=== PATIENT | male | born 1945 | race Caucasian/White ===

== ENCOUNTER → 2016-08-15 | Outpatient (REF) | payer MEDICARE, OTHER ==
[~2016-08-15] MED LIST: /LORA10TA PO; /METO25TAB PO; ASPI81TA85 PO; CRES5TAB PO; OMEP20CA3 PO; TAMS0.4C PO; TYLE325T5 PO; [UNRECOGNIZED DRUG - OTHER] PO
[2016-08-15 18:04] LABS: TOTAL PROTEIN 8.5 GM/DL (6.4-8.2)
[2016-08-17 13:49] LABS: ALBUMIN 4.24 GM/DL (3.29-5.55); ALBUMIN % 49.9 % (55.8-66.1)
== END ==
LOC: M LAB REF 17:00
PROVIDERS: ATTEND Family Medicine
DX: N20.2 Calculus of kidney with calculus of ureter (principal)

== ENCOUNTER 2017-01-23 14:44 | Emergency (ER) | payer MEDICARE, OTHER ==
[~2017-01-23] VITALS: Ht 170.2 cm; Wt 97.7 kg
[2017-01-23] MEDS ORDERED: POTA10TAB (15:04)
[2017-01-23] MEDS ORDERED: OMEP20CA3 (15:04)
[2017-01-23] MEDS ORDERED: NS 1,000 ML IV SCH (15:41)
[2017-01-23 16:28] LABS: BASO # 0.2 K/mm3 (0.0-0.2); EOS # 0.1 K/mm3 (0.0-0.50); EOS % 1.1 % (0.0-3.0); LARGE UNSTAINED CELL # 0.3 K/mm3 (0.0-0.4); LARGE UNSTAINED CELL % 3.5 % (0.0-4.0); LYMPH # 1.6 K/mm3 (1.5-4.5); LYMPH % 18.6 % (24.0-44.0); MEAN CORPUSCULAR HEMOGLOBIN 34.3 pg (27.0-33.0); MEAN CORPUSCULAR HGB CONC 34.8 g/dl (32.0-36.5); MEAN CORPUSCULAR VOLUME 98.6 fl (80.0-96.0); MONO # 0.7 K/mm3 (0.0-0.8); MONO % 7.8 % (0.0-5.0); NEUTROPHILS # 5.7 K/mm3 (1.8-7.7); PLATELET COUNT, AUTOMATED 251 k/mm3 (150-450); RED CELL DISTRIBUTION WIDTH 13.3 % (11.5-14.5); WHITE BLOOD COUNT 8.5 K/mm3 (4.0-10.0)
[2017-01-23 16:46] LABS: ALBUMIN 3.5 GM/DL (3.2-5.2); ALBUMIN/GLOBULIN RATIO 0.81 (1.00-1.93); ALKALINE PHOSPHATASE 73 U/L (45-117); ALT/SGPT 29 U/L (12-78); AMYLASE 42 U/L (25-115); ANION GAP 8 MEQ/L (8-16); AST/SGOT 20 U/L (15-37); BILIRUBIN,DIRECT 0.1 MG/DL (0.0-0.2); BILIRUBIN,TOTAL 0.4 MG/DL (0.2-1.0); BLOOD UREA NITROGEN 20 MG/DL (7-18); CALCIUM LEVEL 8.3 MG/DL (8.8-10.2); CARBON DIOXIDE LEVEL 27 MEQ/L (21-32); CHLORIDE LEVEL 105 MEQ/L (98-107); CREATININE FOR GFR 0.97 MG/DL (0.70-1.30); GLOMERULAR FILTRATION RATE > 60.0 (>42); GLUCOSE, FASTING 98 MG/DL (83-110); POTASSIUM SERUM 3.7 MEQ/L (3.5-5.1); SODIUM LEVEL 140 MEQ/L (136-145); TOTAL PROTEIN 7.8 GM/DL (6.4-8.2)
[2017-01-23] MEDS ORDERED: ISOVUE-370 76% 100ML VIAL (Q9967) As Ordered ONE (17:27)
--- NOTE | 2017-01-23 18:20 | REP ---
Slight [place] CT abdomen and pelvis with IV contrast, without bowel contrast: Comparisons are 03/02/2016, 12/02/2014 and 07/21/2012. The visualized lung palacios are unremarkable except for dependent atelectasis. The hepatic parenchyma is unremarkable. There are surgical clips in the gallbladder fossa. The pancreas and spleen are unremarkable. The adrenals are unremarkable. There are two nonobstructive right renal calculi, unchanged. There is no hydronephrosis. There is a left renal parapelvic cyst, unchanged. There is no left hydronephrosis. The abdominal aorta is unremarkable. There is no bowel distension. There are scattered diverticula in the ascending colon, transverse colon. There are numerous diverticula in the descending colon and sigmoid colon. There is mild pericolonic stranding adjacent to the distal descending colon compatible with mild diverticulitis. There is no pericolonic abscess. There is no ascites. Pelvis: There is no adenopathy or ascites. The pelvic bowel loops are unremarkable except for colonic diverticula. The bladder is unremarkable. Impression: Colonic diverticula is described. There is pericolonic stranding adjacent to the diverticula in the descending colon compatible with mild diverticulitis. There is no pericolonic abscess. No free fluid. Large left renal parapelvic cyst, unchanged. There are two nonobstructive right renal calculi, unchanged. Signed by Edgar Dixon MD 01/23/2017 06:11 P
[2017-01-23] MEDS ORDERED: PERC5TAB12 PO ×2 (18:34→18:36)
[2017-01-23] MEDS ORDERED: AUGM875T28 PO (18:34)
[2017-01-23 18:36] VITALS: BP 163/75
--- NOTE | 2017-01-24 09:43 | ED PDOC ---
Post-Departure Follow-Up radiology report faxed to Xiomy Maloney MD Jan 24, 2017 09:43
== END 2017-01-23 19:15 | disposition home or self-care (01) ==
LOC: M ED 14:44
DX: K57.92 Diverticulitis of intestine, part unspecified, without perforation or abscess without bleeding (principal); E78.00 Pure hypercholesterolemia, unspecified; H53.9 Unspecified visual disturbance; N28.9 Disorder of kidney and ureter, unspecified; N20.0 Calculus of kidney; Z87.440 Personal history of urinary (tract) infections; M54.9 Dorsalgia, unspecified; N28.1 Cyst of kidney, acquired; Z79.82 Long term (current) use of aspirin; Z79.899 Other long term (current) drug therapy; Z88.2 Allergy status to sulfonamides; Z88.8 Allergy status to other drugs, medicaments and biological substances
CPT/HCPCS: 74177; 80048; 80076; 81001; 82150; 83605; 83690; 85025; 99283; Q9967

== ENCOUNTER → 2017-04-11 | Outpatient (CLI) | payer MEDICARE, OTHER ==
[~2017-04-11] MED LIST changes: +AUGM875T28 PO; +OMEP20CA3; +PERC5TAB12 PO; +POTA10TAB
--- NOTE | 2017-04-11 11:19 | REP ---
ADULT SKELETAL SURVEY: 17 VIEWS. HISTORY: Multiple myeloma. COMPARISON STUDY: August 25, 2009 TECHNIQUE: AP and lateral views of the skull, cervical spine, thoracic spine, lumbar spine are obtained. An AP view of the pelvis and AP views of each humerus and each femur are obtained. FINDINGS: The bony calvarium is intact and unchanged from the 2010 prior radiograph. No significant lytic lesion is seen. Visualized paranasal sinuses are clear. No mandibular lesion is observed. Cervical, thoracic, and lumbar vertebral body heights are preserved. No collapse is seen. Pedicles and posterior elements are intact. There are degenerative spondylosis changes in all three segments of the spine as before. There are clips in right upper quadrant of the abdomen. There is a calcification overlying the right kidney upper pole which may be an intrarenal calculus 5 mm in diameter. AP view of the pelvis shows an no bony destructive lesion. There is mild osteoarthritic spurring of the hips. AP views of each femur and humerus show no evidence of myelomatous lesion. There are some osteoarthritic changes at the shoulders and knees. IMPRESSION: No evidence of focal myelomatous lesion seen. Signed by Refugio Angulo MD 04/11/2017 03:30 P
== END ==
LOC: M RAD 09:43
PROVIDERS: ATTEND Internal Medicine Medical Oncology
DX: C90.00 Multiple myeloma not having achieved remission (principal); D47.2 Monoclonal gammopathy

== ENCOUNTER → 2017-04-11 | Outpatient (REF) | payer MEDICARE, OTHER ==
[2017-04-11 18:25] LABS: IMMUNOGLOBULIN G 1980 MG/DL (681-1648); IMMUNOGLOBULIN M 71.6 MG/DL (40-230); TOTAL PROTEIN 8.4 GM/DL (6.4-8.2)
[2017-04-12 09:00] LABS: ALBUMIN 4.28 GM/DL (3.29-5.55); GAMMA GLOBULIN % 24.6 % (11.1-18.8)
[2017-04-13 00:07] LABS: FREE KAPPA LIGHT CHAINS SERUM 20.3 mg/L (3.3-19.4); FREE LAMBDA LIGHT CHAINS SERUM 47.1 mg/L (5.7-26.3); KAPPA/LAMBDA RATIO SERUM 0.43 (0.26-1.65)
== END ==
LOC: M LAB REF 12:25
PROVIDERS: ATTEND Internal Medicine Medical Oncology
DX: D47.2 Monoclonal gammopathy (principal)

== ENCOUNTER → 2017-04-14 | Outpatient (REF) | payer MEDICARE, OTHER | LOC: M LAB REF 11:01 | PROVIDERS: ATTEND Internal Medicine Medical Oncology | DX: C90.00 Multiple myeloma not having achieved remission (principal) ==

== ENCOUNTER → 2017-09-22 | Outpatient (CLI) | payer MEDICARE, OTHER ==
[2017-09-22 09:20] LABS: BASO % 0.5 % (0.0-1.0); EOS # 0.2 10^3/uL (0.0-0.50); EOS % 3.5 % (0.0-3.0); HEMATOCRIT 45.5 % (42.0-52.0); HEMOGLOBIN 15.2 g/dl (14.0-18.0); IMMATURE GRANULOCYTE % 0.3 % (0-3.0); LYMPH # 1.6 10^3/uL (1.5-4.5); LYMPH % 25.4 % (24.0-44.0); MEAN CORPUSCULAR HEMOGLOBIN 32.3 pg (27.0-33.0); MEAN CORPUSCULAR HGB CONC 33.4 g/dl (32.0-36.5); MEAN CORPUSCULAR VOLUME 96.6 fl (80.0-96.0); MONO # 0.7 10^3/uL (0.0-0.8); MONO % 11.1 % (0.0-5.0); NEUTROPHILS # 3.7 10^3/uL (1.8-7.7); NEUTROPHILS % 59.2 % (36.0-66.0); PLATELET COUNT, AUTOMATED 242 10^3/uL (150-450); RED BLOOD COUNT 4.71 10^6/uL (4.30-6.10); RED CELL DISTRIBUTION WIDTH 13.9 % (11.5-14.5); WHITE BLOOD COUNT 6.2 10^3/uL (4.0-10.0)
[2017-09-22 09:46] LABS: URINE TOTAL PROTEIN 26.1 MG/DL (0-12)
[2017-09-22 10:02] LABS: ALBUMIN 3.6 GM/DL (3.2-5.2); ALKALINE PHOSPHATASE 77 U/L (45-117); ALT/SGPT 31 U/L (12-78); ANION GAP 6 MEQ/L (8-16); AST/SGOT 20 U/L (7-37); BILIRUBIN,TOTAL 0.5 MG/DL (0.2-1.0); BLOOD UREA NITROGEN 17 MG/DL (7-18); CALCIUM LEVEL 8.5 MG/DL (8.8-10.2); CARBON DIOXIDE LEVEL 29 MEQ/L (21-32); CHLORIDE LEVEL 105 MEQ/L (98-107); GLOMERULAR FILTRATION RATE > 60.0 (>42); GLUCOSE, FASTING 94 MG/DL (70-100); IMMUNOGLOBULIN G 1850 MG/DL (681-1648); IMMUNOGLOBULIN M 80.6 MG/DL (40-230); POTASSIUM SERUM 4.4 MEQ/L (3.5-5.1); SODIUM LEVEL 140 MEQ/L (136-145); TOTAL PROTEIN 8.1 GM/DL (6.4-8.2)
[2017-09-22 13:54] LABS: ALBUMIN 4.05 GM/DL (3.29-5.55); ALPHA-1-GLOBULIN % 3.8 % (2.9-4.9); ALPHA-2-GLOBULINS % 10.7 % (7.1-11.8); BETA-1-GLOBULINS % 5.7 % (4.7-7.2); BETA-2-GLOBULINS % 5.5 % (3.2-6.5); GAMMA GLOBULIN % 24.3 % (11.1-18.8)
[2017-09-22 13:55] LABS: ALPHA-1-GLOBULINS 0.31 GM/DL (0.17-0.41); ALPHA-2-GLOBULINS 0.87 GM/DL (0.42-0.99); BETA-1-GLOBULINS 0.46 GM/DL (0.28-0.60); BETA-2-GLOBULINS 0.45 GM/DL (0.19-0.55); GAMMA GLOBULINS 1.97 GM/DL (0.65-1.58)
[2017-09-24 00:09] LABS: FREE KAPPA LIGHT CHAINS SERUM 18.4 mg/L (3.3-19.4); FREE LAMBDA LIGHT CHAINS SERUM 51.2 mg/L (5.7-26.3); KAPPA/LAMBDA RATIO SERUM 0.36 (0.26-1.65)
== END ==
LOC: M LAB 08:11
DX: D47.2 Monoclonal gammopathy (principal)
CPT/HCPCS: 84165

== ENCOUNTER → 2017-12-26 | Outpatient (REF) | payer MEDICARE, OTHER ==
[2017-12-26 15:03] LABS: URINE TOTAL PROTEIN 24.4 MG/DL (0-12)
[2017-12-26 17:15] LABS: IMMUNOGLOBULIN G 1970 MG/DL (681-1648); IMMUNOGLOBULIN M 75.8 MG/DL (40-230); TOTAL PROTEIN 8.3 GM/DL (6.4-8.2)
[2017-12-28 00:07] LABS: FREE KAPPA LIGHT CHAINS SERUM 17.5 mg/L (3.3-19.4); FREE LAMBDA LIGHT CHAINS SERUM 52.9 mg/L (5.7-26.3); KAPPA/LAMBDA RATIO SERUM 0.33 (0.26-1.65)
[2017-12-28 12:46] LABS: ALBUMIN % 50.6 % (55.8-66.1); ALPHA-1-GLOBULIN % 3.8 % (2.9-4.9); ALPHA-1-GLOBULINS 0.32 GM/DL (0.17-0.41); ALPHA-2-GLOBULINS 0.83 GM/DL (0.42-0.99); BETA-1-GLOBULINS 0.46 GM/DL (0.28-0.60); BETA-1-GLOBULINS % 5.5 % (4.7-7.2); BETA-2-GLOBULINS 0.44 GM/DL (0.19-0.55); BETA-2-GLOBULINS % 5.3 % (3.2-6.5); GAMMA GLOBULIN % 24.8 % (11.1-18.8); GAMMA GLOBULINS 2.06 GM/DL (0.65-1.58)
[2017-12-28 14:26] LABS: UPEP INTERPRETATION 2 M-SPIKES IN GAMMA; URINE VOLUME RANDOM ML
== END ==
LOC: M LAB REF 12:46
DX: D47.2 Monoclonal gammopathy (principal)
CPT/HCPCS: 84165

== ENCOUNTER → 2018-05-07 | Outpatient (REF) | payer MEDICARE, OTHER ==
[2018-05-07 12:59] LABS: IMMUNOGLOBULIN G 1850 MG/DL (681-1648); IMMUNOGLOBULIN M 66 MG/DL (40-230)
[2018-05-08 13:49] LABS: ALBUMIN % 48.4 % (55.8-66.1); ALPHA-1-GLOBULIN % 3.7 % (2.9-4.9); ALPHA-2-GLOBULINS % 11.5 % (7.1-11.8)
[2018-05-08 13:50] LABS: ALBUMIN 3.87 GM/DL (3.29-5.55); ALPHA-2-GLOBULINS 0.92 GM/DL (0.42-0.99); BETA-1-GLOBULINS 0.44 GM/DL (0.28-0.60); BETA-1-GLOBULINS % 5.5 % (4.7-7.2); BETA-2-GLOBULINS 0.43 GM/DL (0.19-0.55); BETA-2-GLOBULINS % 5.4 % (3.2-6.5); GAMMA GLOBULIN % 25.5 % (11.1-18.8); GAMMA GLOBULINS 2.04 GM/DL (0.65-1.58)
[2018-05-08 13:57] LABS: IMMUNOTYPING SERUM IGG ABNORMAL (NORMAL)
[2018-05-08 13:58] LABS: IMMUNOTYPING SERUM LAMBDA ABNORMAL (NORMAL)
[2018-05-09 00:06] LABS: FREE KAPPA LIGHT CHAINS SERUM 18.5 mg/L (3.3-19.4); FREE LAMBDA LIGHT CHAINS SERUM 53.6 mg/L (5.7-26.3); KAPPA/LAMBDA RATIO SERUM 0.35 (0.26-1.65)
== END ==
LOC: M LAB REF 12:10
DX: D47.2 Monoclonal gammopathy (principal); R80.3 Bence Jones proteinuria
CPT/HCPCS: 84165

== ENCOUNTER → 2018-07-23 | Outpatient (REF) | payer MEDICARE, OTHER ==
[~2018-07-23] MED LIST changes: +ASPI1TAB PO; +ATOR1TAB19 PO; +CLOP75TA2 PO; +HYDR12CA PO; +LORA10CA PO; +METO1TAB87 PO; +PANT40TA3 PO; +POTA10808; -POTA10TAB; +TAMS1CAP17 PO
[2018-07-23 15:47] LABS: AMYLASE 48 U/L (25-115); LIPASE 152 U/L (73-393)
== END ==
LOC: M LAB REF 15:28
PROVIDERS: ATTEND Family Medicine
DX: R10.9 Unspecified abdominal pain (principal)

== ENCOUNTER → 2019-03-12 | Outpatient (CLI) | payer MEDICARE, OTHER ==
[~2019-03-12] MED LIST changes: -/LORA10TA PO; -/METO25TAB PO; -ASPI1TAB PO; +ASPI81TA26 PO; +LORA-385 PO; -OMEP20CA3; +OMEP20CA4; +SM LTAB5 PO
--- NOTE | 2019-03-12 16:42 | REP ---
Clinical: Right lower extremity pain and swelling. Technique: Butts scale and color Doppler evaluation of the right lower extremity using linear high frequency transducer. Findings: Ultrasound examination of the right lower extremity deep venous structures from the common femoral vein to the popliteal vein demonstrates nonocclusive thrombus in the popliteal vein consistent with deep venous thrombosis Impression: Deep venous thrombosis involving the popliteal vein. Electronically Signed by Juan Pham MD 03/12/2019 04:34 P
== END ==
LOC: M RAD 16:00
PROVIDERS: ATTEND Nurse Practitioner Family
DX: I82.431 Acute embolism and thrombosis of right popliteal vein (principal)

== ENCOUNTER 2019-05-03 11:39 | Inpatient (IN) | payer MEDICARE, OTHER ==
[~2019-05-03] VITALS: Ht 170.2 cm; Wt 104.7 kg
[~2019-05-03 11:39] MED LIST changes: -POTA10808; +POTA10808 PO
[2019-05-03] MEDS ORDERED: ALBU8.5H INH (12:14)
[2019-05-03] MEDS ORDERED: CETI10CA13 PO (12:14)
[2019-05-03] MEDS ORDERED: OSTETAB2 PO (12:14)
[2019-05-03] MEDS ORDERED: COLA100C5 PO (12:14)
[2019-05-03] MEDS ORDERED: REFRSOL OP (12:14)
[2019-05-03] MEDS ORDERED: ELIQ5TAB PO (12:14)
[2019-05-03] MEDS ORDERED: colon health PO (12:14)
[2019-05-03] MEDS ORDERED: ERYT1OIN26 (12:14)
[2019-05-03] MEDS ORDERED: MIRA3350 PO (12:14)
[2019-05-03] MEDS ORDERED: REST0.05 OU (12:14)
[2019-05-03] MEDS ORDERED: AMLO5TAB6 PO (12:14)
--- NOTE | 2019-05-03 12:40 | REP ---
CT brain: 05/03/2019. Indication: Stroke. Comparison: New none. Technique: Unenhanced axial CT images of the brain were obtained from skull base to vertex. Findings: There is no acute intracranial hemorrhage, acute cortical infarction, mass effect or hydrocephalous. Mild diffuse volume loss is present. There are a few scattered foci of hypoattenuation throughout the cerebral hemisphere white matter most consistent with chronic small vessel disease. Impression: No acute intracranial process. Electronically Signed by Pete Britton DO 05/03/2019 12:31 P
[2019-05-03 13:09] LABS: BASO % 0.3 % (0.0-1.0); EOS # 0.1 10^3/uL (0.0-0.5); EOS % 1.7 % (0.0-3.0); HEMATOCRIT 41.6 % (42.0-52.0); HEMOGLOBIN 14.1 g/dl (13.5-17.5); LYMPH # 1.4 10^3/uL (1.5-5.0); LYMPH % 20.4 % (24.0-44.0); MEAN CORPUSCULAR HEMOGLOBIN 33.3 pg (27.0-33.0); MEAN CORPUSCULAR HGB CONC 33.9 g/dl (32.0-36.5); MEAN CORPUSCULAR VOLUME 98.1 fl (80.0-96.0); MONO # 0.8 10^3/uL (0.0-0.8); MONO % 12.7 % (0.0-5.0); NEUTROPHILS # 4.3 10^3/uL (1.5-8.5); NEUTROPHILS % 64.4 % (36.0-66.0); PLATELET COUNT, AUTOMATED 251 10^3/uL (150-450); RED BLOOD COUNT 4.24 10^6/uL (4.30-6.10); WHITE BLOOD COUNT 6.6 10^3/uL (4.0-10.0)
[2019-05-03 13:25] LABS: INR 1.23; PROTHROMBIN TIME 15.2 SECONDS (11.8-14.0)
[2019-05-03] MEDS ORDERED: LABETALOL HCL 100 MG/20 ML VIAL IV STA (13:25)
[2019-05-03 13:26] LABS: PARTIAL THROMBOPLASTIN TIME 34.3 SECONDS (25.0-38.4)
[2019-05-03] MEDS ORDERED: hydrALAZINE INJ 20 MG/ML VIAL IV STA (13:28)
--- NOTE | 2019-05-03 13:32 | REP ---
CHEST, SINGLE VIEW: Single view of the chest is performed. There is fibroatelectatic change again seen along the left base unchanged since prior study 12/08/2017. No new infiltrate is seen. Heart does not appear to be significantly enlarged. There is mild calcification of the thoracic aorta. Mediastinal silhouette is unchanged. There are degenerative changes of the spine. IMPRESSION: No acute infiltrate. Unreviewed
[2019-05-03 13:48] LABS: BLOOD UREA NITROGEN 19 MG/DL (7-18); CALCIUM LEVEL 8.6 MG/DL (8.8-10.2); CARBON DIOXIDE LEVEL 28 MEQ/L (21-32); CHLORIDE LEVEL 105 MEQ/L (98-107); CK-MB VALUE MASS 3.7 NG/ML (<3.6); CPK CREATINE PHOSPHOKINASE 503 U/L (39-308); CREATININE FOR GFR 1.07 MG/DL (0.70-1.30); GLOMERULAR FILTRATION RATE > 60.0 (>42); GLUCOSE, FASTING 84 MG/DL (70-100); MB/CK RELATIVE INDEX 0.74 (< OR =4); POTASSIUM SERUM 4.8 MEQ/L (3.5-5.1); SODIUM LEVEL 138 MEQ/L (136-145); TROPONIN I < 0.02 NG/ML (< 0.10)
[2019-05-03] MEDS ORDERED: PHILCAP4 PO (14:50)
[2019-05-03] MEDS ORDERED: FLUT0.003 TOP (14:50)
[2019-05-03] MEDS ORDERED: SELE25SHA TOP (14:50)
[2019-05-03] MEDS ORDERED: GLUCAGON FOR INJ 1 MG VIAL (J1610) SC PRN (15:00)
[2019-05-03] MEDS ORDERED: DEXTROSE 50% 50 ML SYRINGE IV PRN (15:00)
[2019-05-03] MEDS ORDERED: GLUCOSE 4 GM CHEW TABLET PO PRN (15:00)
--- NOTE | 2019-05-03 15:11 | HPEPDOC ---
General Date of Admission 05/03/2019 Date of Service: May 03, 2019 Chief Complaint The patient is a 74-year-old male Who presented to the emergency room with complaints of numbness on left side of the body with left-sided facial droop since Monday History of Present Illness Patient is a 74-year-old male with a PMHx of WA (01/2018, on ASA / Plavix), Hx of R LE DVT (03/2019, on Eliquis), Paroxysmal atrial fibrillation, HTN, DLP, Elevated Glucose (Pre-diabetic), MGUS?, GERD who presented to the emergency room with complaints of left-sided upper and lower extremity numbness and tingling associated with left-sided facial droop. Patient reports that his symptoms began on Monday afternoon after a hvac technician residential had noted facial changes while he was eating lunch. Patient reports that currently he is experiencing some left ear pain, described as throbbing, less than 5/10 without any alleviating or record and factors. Patient denies any difficulty swallowing. Denies any slurred speech. Denies any hearing difficulty, or ringing in ears. Patient denies any difficulty with ambulation. Currently patient denies any chest pain, palpitations but does report shortness of breath with exertion. Patient denies any nausea, vomiting, abdominal pain, diarrhea, constipation, or urinary discomfort. Patient has not expense any fevers or chills over the last 2 weeks. Patient does report an increase in his weight that he attributes to poor exercise, but notes that his appetite has not changed. Home Medications Scheduled Amlodipine Besylate (Amlodipine Besylate) 5 Mg Tablet, 5 MG PO DAILY, (Reported) Apixaban (Eliquis) 5 Mg Tablet, 5 MG PO BID, (Reported) Aspirin (Aspirin EC) 81 Mg Tab, 81 MG PO DAILY, (Reported) Atorvastatin Calcium (Atorvastatin Calcium) 10 Mg Tab, 10 MG PO DAILY, (Reported) Clopidogrel Bisulfate (Clopidogrel) 75 Mg Tab, 75 MG PO DAILY, (Reported) Cyclosporine (Restasis) 0.05% Droperette, 1 DROP OU BID, (Reported) Docusate Sodium (Colace) 100 Mg Capsule, 100 MG PO DAILY, (Reported) Glucosam/Sylvester-Msm1/C/Stevie/Bosw (Osteo Bi-Flex Caplet) 1 Each Tablet, 2 TAB PO DAILY, (Reported) Hydrochlorothiazide (Hydrochlorothiazide) 12.5 Mg Cap, 12.5 MG PO DAILY, (Reported) Loratadine (Loratadine) 10 Mg Tab.rapdis, 10 MG PO DAILY, (Reported) Metoprolol Tartrate (Metoprolol Tartrate) 25 Mg Tab, 25 MG PO BID, (Reported) Pantoprazole Sodium (Pantoprazole Sodium) 40 Mg Tab, 40 MG PO DAILY, (Reported) Potassium Citrate (Potassium Citrate 10MEQ (Urocit-K)) 1,080 Mg Tab, 1,080 MG PO DAILY, (Reported) Tamsulosin Hcl (Tamsulosin HCl) 0.4 Mg Cap, 0.4 MG PO DAILY, (Reported) l Gasseri/B Bifidum/B Longum (Moonshado Capsule) 1 Each Capsule, 1 CAP PO DAILY, (Reported) Scheduled PRN Albuterol Sulfate (Albuterol Sulfate Hfa) 8.5 Gm Hfa.aer.ad, 2 PUFFS INH Q4H PRN for SHORTNESS OF BREATH, (Reported) Fluticasone Propionate (Fluticasone Propionate 0.005%) 15 Gm Oint...g., 1 DOSE TOP BID PRN for ITCHING, (Reported) APPLY TO LOWER LEGS AND UPPER BACK Selenium Sulfide (Selenium Sulfide 2.5%) 118 Ml Lotion, 1 DOSE TOP DAILY PRN for DRY SKIN, (Reported) APPLY TO FACE AND SCALP Allergies Coded Allergies: Ltdxxzx-Nnv-Dew Reductase Inhibitor (Verified Allergy, Unknown, 10/26/18) Sulfa (Sulfonamide Antibiotics) (Verified Allergy, Unknown, 10/26/18) levofloxacin (Verified Allergy, Unknown, 05/03/19) clopidogrel (Verified Adverse Reaction, Intermediate, Fainting /Dizziness, 10/26/18) diazepam (Verified Adverse Reaction, Unknown, Hyper, 10/26/18) Past Medical History Medical History WA (01/2018, on ASA / Plavix), Hx of R LE DVT (03/2019, on Eliquis), Paroxysmal atrial fibrillation, HTN, DLP, Elevated Glucose (Pre-diabetic), MGUS?, Hx of Kidney stones, GERD Surgical History Hiatal hernia repair 2 Cholecystectomy Sinus surgery Vocal cord polyp resection Family History - Mother and father both with a history of extensive strokes Social History - Denies the use of tobacco or illicit drugs; patient reports social alcohol use - Denies recent travel or sick contacts - Lives alone - Occupation; 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 No rhonchi or wheezing is appreciated - Abdomen: Soft, Non-distended, Non-tender - Extremities: No lower extremity edema, No calf tenderness - Neuro: 5/5 strength at upper / lower extremities bilaterally, decreased sensation at left upper / lower extremities, facial droop noted on left side - Skin: No visible rashes Laboratory Data Labs 24H Laboratory Tests 2 05/03/19 12:46: Immature Granulocyte % (Auto) 0.5, Neutrophils (%) (Auto) 64.4, Lymphocytes (%) (Auto) 20.4L, Monocytes (%) (Auto) 12.7H, Eosinophils (%) (Auto) 1.7, Basophils (%) (Auto) 0.3, Neutrophils # (Auto) 4.3, Lymphocytes # (Auto) 1.4L, Monocytes # (Auto) 0.8, Eosinophils # (Auto) 0.1, Basophils # (Auto) 0.0, Nucleated Red Blood Cells % (auto) 0.0, Prothrombin Time 15.2H, Prothromb Time International Ratio 1.23, Activated Partial Thromboplast Time 34.3, Anion Gap 5L, Glomerular Filtration Rate > 60.0, Calcium Level 8.6L, Total Creatine Kinase 503H, Creatine Kinase MB 3.7H, Creatine Kinase MB Relative Index 0.74, Troponin I < 0.02 CBC/BMP Laboratory Tests 05/03/19 12:46 Plan Plan Numbness and tingling of left upper and lower extremities./Left-sided facial numbness and tingling/left-sided facial droop - likely 2/2 acute CVA, less likely 2/2 TIA - Patient presented to the emergency room after experiencing symptoms since Monday - Patient is outside the window to receive tPA - Patient denies any slurring of his speech or dysphagia - Physical does reveal numbness/decreased sensation of a left upper and lower extremities - Left facial droop is noted - CT head 05/03: No acute intracranial process. - CXR 05/03: No acute infiltrate. - Will check echocardiogram. Duplex ultrasound of carotids and fasting lipid profile - Will check MRI / MRA brain - Patient is currently on ASA 81, Plavix 75, Atorvastatin 10 and Elqiuis (re: recent DVT) HTN - Will allow for permissive hypertension in the setting of possible CVA; SBP of 140-160 - Will hold HCTZ and Amlodipine - Will continue with metoprolol and hydralazine PRN Chronic WA - Patient reports that he had an episode of WA in 01/2018 - c/w ASA, Plavix, Atorvastatin, Metoprolol Hx of R LE DVT - Recent history of DVT on 03/2019 - c/w full anticoagulation with Eliquis Paroxysmal atrial fibrillation - Reviewing EKG does reveal that the patient is currently in sinus rhythm - Will continue with rate control medications with metoprolol - Continue with full anticoagulation with eloquent DLP - c/w Atorvastatin Elevated Glucose - likely 2/2 Pre-diabetes - Will check A1c - c/w ISS for now MGUS Hx of Kidney stones - Currently is asymptomatic BPH - c/w Tamsulosin GERD - c/w Protonix DVT prophylaxis - c/w full anticoagulation with BIBI Concepcion MD May 03, 2019 15:11
[2019-05-03 16:28] VITALS: BP 178/84
[2019-05-03] MEDS ORDERED: SLF 3 ML SYR IV PRN (17:00)
[2019-05-03] MEDS: HumaLOG INSULIN (NovoLOG) PER UNIT SC SCH (17:30)
[2019-05-03] MEDS: ACETAMINOPHEN TAB 650MG DOSE (2X325MG) PO PRN (18:13)
[2019-05-03 20:00] VITALS: BP 132/69
--- NOTE | 2019-05-03 20:06 | REPVR ---
PROCEDURE INFORMATION: Exam: US Duplex Bilateral Extracranial Arteries Exam date and time: 05/03/2019 7:50 PM Clinical history: 74 years old, male; Syncope and collapse; Additional info: Stroke TECHNIQUE: Imaging protocol: Real-time Duplex ultrasound scan of the bilateral carotid and vertebral arteries combining suarez scale, color Doppler and spectral waveform analysis. Bilateral exam. COMPARISON: CT Head without contrast 05/03/2019 11:47 AM FINDINGS: Limitations: Patient motion. Right common carotid artery: Peak systolic velocity of the right common carotid artery is 86 cm/s. There is mild plaquing at the right common carotid bifurcation. Right internal carotid artery: Peak systolic velocity of the right ICA is 80 cm/s. Mild plaque formation at the right carotid bulb. Right ICA/CCA ratio: Right ICA/CCA ratio is 0.9. Right external carotid artery: No stenosis in the origin. Right vertebral artery: Right vertebral artery is not visualized. Left common carotid artery: Peak systolic velocity of the left common carotid artery is 92 cm/s. Mild plaque formation at the left common carotid bifurcation. Left internal carotid artery: CT systolic velocity of the left ICA is 69 cm/s. Mild plaque formation at the left carotid bulb. Left ICA/CCA ratio: Left ICA/CCA ratio is 0.8. Left external carotid artery: No stenosis in the origin. Left vertebral artery: Unremarkable. Antegrade flow. IMPRESSION: 1. Right vertebral artery is not discretely visualized. 2. No definite significant stenosis involving the ICAs. COMMENT: Carotid Stenosis Reference using SRU criteria: Mild: less than 50% stenosis. ICA PSV is less than 125 cm/second and plaque or intimal thickening is visible. Moderate: 50-69% stenosis. ICA PSV is 125 to 230 cm/second and plaque is visible. Severe: 70-94% stenosis. ICA PSV is more than 230 cm/second and visible plaque and lumen narrowing are seen. Near occlusion: 95-99% stenosis. ICA PSV is variable and significant plaque and luminal narrowing are seen. Occluded: 100% stenosis. No flow identified. Electronically signed by: Rufus Baptiste On 05/03/2019 20:06:32 PM
--- NOTE | 2019-05-03 20:09 | REPVR ---
PROCEDURE INFORMATION: Exam: MR Head Without Contrast Exam date and time: 05/03/2019 1:48 PM Clinical history: 74 years old, male; Pain; Headache not specified; Additional info: Left sensation change/weak TECHNIQUE: Imaging protocol: MR of the head without contrast. COMPARISON: CT Head without contrast 05/03/2019 11:47 AM FINDINGS: Age-related volume loss. Major vascular flow voids at the skull base are preserved. No extra-axial fluid collection. No midline shift or intracranial mass effect. Mild nonspecific white matter gliosis, probable chronic microvascular ischemia. No cerebral edema. No diffusion restriction. Mild paranasal sinus disease. No significant mastoid effusion. IMPRESSION: No acute intracranial abnormality. Electronically signed by: Rufus Baptiste On 05/03/2019 20:09:05 PM
--- NOTE | 2019-05-03 20:12 | REPVR ---
PROCEDURE INFORMATION: Exam: MR Angiogram Head Without Contrast, Arteries Exam date and time: 05/03/2019 7:27 PM Clinical history: 74 years old, male; Pain; Headache; Additional info: Left sensation change/weak TECHNIQUE: Imaging protocol: MR angiogram head without contrast. Exam focused on the arteries. 3D rendering: MIP reconstructed images were created and reviewed. COMPARISON: CT Head without contrast 05/03/2019 11:47 AM FINDINGS: Right internal carotid artery: Unremarkable. Intracranial segment is patent with no significant stenosis. No aneurysm. Right anterior cerebral artery: Unremarkable. No occlusion or significant stenosis. No aneurysm. Right middle cerebral artery: Unremarkable. No occlusion or significant stenosis. No aneurysm. Right posterior cerebral artery: Unremarkable. No occlusion or significant stenosis. No aneurysm. Right vertebral artery: Right vertebral artery is diminutive following the takeoff of the PICA. Left internal carotid artery: Unremarkable. Intracranial segment is patent with no significant stenosis. No aneurysm. Left anterior cerebral artery: Unremarkable. No occlusion or significant stenosis. No aneurysm. Left middle cerebral artery: Unremarkable. No occlusion or significant stenosis. No aneurysm. Left posterior cerebral artery: Unremarkable. No occlusion or significant stenosis. No aneurysm. Left vertebral artery: Left vertebral artery is dominant. Basilar artery: Unremarkable. No occlusion or significant stenosis. No aneurysm. IMPRESSION: No hemodynamically significant stenosis or large vessel occlusion. Electronically signed by: Rufus Baptiste On 05/03/2019 20:11:42 PM
[2019-05-03] MEDS ORDERED: HumaLOG INSULIN (NovoLOG) PER UNIT SC SCH (21:00)
--- NOTE | 2019-05-03 21:30 | ECGEPIP ---
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
[2019-05-03] MEDS: METOPROLOL TART 25 MG TABLET PO SCH (22:07)
[2019-05-03] MEDS: APIXABAN 5 MG TAB (ELIQUIS) PO SCH (22:07)
[2019-05-03] MEDS: SLF 3 ML SYR IV SCH (22:07)
[2019-05-04] VITALS (7 sets, daily range): BP systolic 104–162; BP diastolic 61–80
[2019-05-04] MEDS: ACETAMINOPHEN TAB 650MG DOSE (2X325MG) PO PRN ×4 (01:43→23:15)
[2019-05-04] MEDS: SLF 3 ML SYR IV SCH ×3 (05:25→20:51)
[2019-05-04 06:10] LABS: BASO % 0.5 % (0.0-1.0); EOS # 0.2 10^3/uL (0.0-0.5); EOS % 2.7 % (0.0-3.0); HEMATOCRIT 39.6 % (42.0-52.0); HEMOGLOBIN 13.4 g/dl (13.5-17.5); LYMPH # 1.5 10^3/uL (1.5-5.0); LYMPH % 24.6 % (24.0-44.0); MEAN CORPUSCULAR HEMOGLOBIN 33.1 pg (27.0-33.0); MEAN CORPUSCULAR HGB CONC 33.8 g/dl (32.0-36.5); MEAN CORPUSCULAR VOLUME 97.8 fl (80.0-96.0); MONO # 0.8 10^3/uL (0.0-0.8); MONO % 12.7 % (0.0-5.0); NEUTROPHILS # 3.5 10^3/uL (1.5-8.5); NEUTROPHILS % 59.2 % (36.0-66.0); PLATELET COUNT, AUTOMATED 224 10^3/uL (150-450); RED BLOOD COUNT 4.05 10^6/uL (4.30-6.10)
[2019-05-04 06:43] LABS: HEMOGLOBIN A1c 6.3 %
[2019-05-04 06:46] LABS: BLOOD UREA NITROGEN 16 MG/DL (7-18); CALCIUM LEVEL 8.4 MG/DL (8.8-10.2); CARBON DIOXIDE LEVEL 27 MEQ/L (21-32); CHLORIDE LEVEL 107 MEQ/L (98-107); CHOLESTEROL LEVEL 107 MG/DL (<200); CHOLESTEROL RISK RATIO 3.147 (<5); CREATININE FOR GFR 0.96 MG/DL (0.70-1.30); GLOMERULAR FILTRATION RATE > 60.0 (>42); GLUCOSE, FASTING 98 MG/DL (70-100); HDL CHOLESTEROL 34 MG/DL (>40); LDL CHOLESTEROL 45 MG/DL (<100); MAGNESIUM LEVEL 1.9 MG/DL (1.8-2.4); NON-HDL-C 73 MG/DL; POTASSIUM SERUM 3.3 MEQ/L (3.5-5.1); SODIUM LEVEL 141 MEQ/L (136-145); TRIGLYCERIDES LEVEL 138 MG/DL (<150)
[2019-05-04] MEDS: HumaLOG INSULIN (NovoLOG) PER UNIT SC SCH ×2 (07:21→12:00)
[2019-05-04] MEDS ORDERED: POTASSIUM CHLORIDE 10 MEQ SR TABLET PO ONE (09:00)
[2019-05-04] MEDS: ASPIRIN 81 MG ENTERIC TAB PO SCH (09:09)
[2019-05-04] MEDS: TAMSULOSIN 0.4 MG CAP PO SCH (09:10)
[2019-05-04] MEDS: APIXABAN 5 MG TAB (ELIQUIS) PO SCH ×2 (09:10→20:49)
[2019-05-04] MEDS: CLOPIDOGREL 75 MG TAB PO SCH (09:10)
[2019-05-04] MEDS: PANTOPRAZOLE 40MG TAB (PROTONIX) PO SCH (09:10)
[2019-05-04] MEDS: ATORVASTATIN 10 MG TAB PO SCH (09:10)
[2019-05-04] MEDS: DOCUSATE SODIUM 100 MG CAP PO SCH (09:10)
[2019-05-04] MEDS: METOPROLOL TART 25 MG TABLET PO SCH ×2 (09:11→20:51)
--- NOTE | 2019-05-04 10:10 | REP ---
Bilateral lower extremity Duplex Doppler venous ultrasound: Real time compression and duplex Doppler interrogation of the bilateral lower extremity deep venous system is performed. Bilaterally, the common femoral, superficial femoral and popliteal veins are fully compressible with transducer pressure and demonstrate normal spontaneous and phasic flow, without evidence of deep venous thrombosis. Impression: No evidence of deep venous thrombosis of the bilateral lower extremity femoral popliteal venous system. Electronically Signed by Edgar Butts MD 05/04/2019 10:02 A
[2019-05-04] MEDS: hydrOXYzine 25 MG TAB PO SCH ×2 (12:28→20:49)
[2019-05-04] MEDS: valACYclovir HCL 500 MG TAB PO SCH ×2 (12:28→20:49)
[2019-05-04] MEDS: predniSONE 20 MG TAB PO SCH (12:29)
--- NOTE | 2019-05-04 13:17 | IPNPDOC ---
Date Seen The patient was seen on 05/04/19. Progress Note SUBJECTIVE: Patient is a This is a 74-year-old male with left sided facial droop and left sided facial, upper and lower extremity decreased sensation and reported numbness Patient is seen and examined today sitting comfortably in a chair. He states he was first notified that he had a facial droop on the left side of his face on Monday by a outer diameter grinder where he was eating. Since then, he has noticed facial droop in the mirror as well as decreased sensation on the left side of his face and body. He states he has been nervous walking up and down stairs. Pt also reports bilateral calf sensitivity and swelling which he has noticed has been worsening over the past 1-2 weeks. He states the right is still worse than the left, consistent with his recent history of DVT in the right leg. He also reports continued left ear pain, which is stable from yesterday. OBJECTIVE PHYSICAL EXAMINATION: VITAL SIGNS: Please see below. GENERAL: Alert, comfortable, talkative, in no acute distress HEENT: Normocephalic, atraumatic, PERRLA, EOMI, moist mucous membranes CARDIOVASCULAR: Regular rate and rhythm, normal S1, S2. No murmurs, rubs, or gallops RESPIRATORY: Clear to auscultation bilaterally with equal air entry bilaterally. No wheezing, rhonchi, or rales ABDOMEN: Soft, nontender, nondistended, bowel sounds present EXTREMITIES: Edema present bilaterally in the right lower extremity worse than the left with tenderness to light touch in bilateral calfs. Pulses 2+/4 in bilateral upper and lower extremities SKIN: [place], warm, dry NEUROLOGIC: Alert and oriented 3 to person, place and time. left facial droop and decreased sensation on the left side of the face compared to the right, otherwise cranial nerves 2-12 grossly intact. Decreased sensation in the left upper and lower extremities compared to the right. Strength 5 out of 5 in all 4 extremities. PSYCHIATRIC: Mood and affect appropriate LABORATORY DATA, IMAGING STUDIES, MICROBIOLOGY: Please see below. ASSESSMENT AND PLAN: This is a 74-year-old male with left sided facial droop sparing the forehead and left sided facial, upper and lower extremity decreased sensation and reported numbness, brain MRI negative for acute CVA PROBLEMS: # Numbness and tingling of left upper and lower extremities./Left-sided facial numbness and tingling/left-sided facial droop - likely 2/2 acute CVA, less likely 2/2 TIA - Patient presented to the emergency room after experiencing symptoms since Monday - Patient is outside the window to receive tPA - Patient denies any slurring of his speech or dysphagia - Physical does reveal numbness/decreased sensation of a left upper and lower extremities. Left facial droop is noted. - Fasting lipid profile: low HDL, otherwise WNL - CT head 05/03: No acute intracranial process. - CXR 05/03: No acute infiltrate. - MRI / MRA brain 05/03: no intracranial abnormality, no hemodynamically significant stenosis or large vessel occlusion - Duplex ultrasound of carotids 05/03: Right vertebral artery is not discretely visualized. No definite significant stenosis involving the ICAs. - Echocardiogram ordered and pending. - Patient is currently on ASA 81, Plavix 75, Atorvastatin 10, and Elqiuis (re: recent DVT) # Bilateral Calf tenderness - History of R LE DVT, on Eliquis - Bilateral LE duplex Doppler 05/04: No evidence of deep venous thrombosis of the bilateral lower extremity femoral popliteal venous system. # HTN - Will allow for permissive hypertension in the setting of possible CVA; SBP of 140-160 - Will hold HCTZ and Amlodipine - Will continue with metoprolol and hydralazine PRN # Chronic NV - Patient reports that he had an episode of NV in 01/2018 - c/w ASA, Plavix, Atorvastatin, Metoprolol # Hx of R LE DVT - Recent history of DVT on 03/2019 - c/w full anticoagulation with Eliquis # Paroxysmal atrial fibrillation - EKG does reveal that the patient is currently in sinus rhythm - Will continue with rate control medications with metoprolol - Continue with full anticoagulation with Eliquis # DLP - c/w Atorvastatin # Elevated Glucose - likely 2/2 Pre-diabetes - A1c 6.3 suggesting pre-diabetes - will d/c ISS # MGUS # Hx of Kidney stones - Currently is asymptomatic # BPH - c/w Tamsulosin # GERD - c/w Protonix # DVT prophylaxis - c/w full anticoagulation with Eliquis DISPOSITION: inpatient pending echocardiogram and neurology consult VS, I&O, 24H, Fishbone Vital Signs/I&O Vital Signs Date Time Temp Pulse Resp B/P (MAP) Pulse Ox O2 Delivery O2 Flow Rate FiO2 05/04/19 09:11 66 149/74 05/04/19 08:00 98.1 17 95 Room Air I&O- Last 24 Hours up to 6 AM 05/04/19 06:00 Intake Total 480 ml Output Total 300 ml Balance 180 ml Laboratory Data 24H LABS Laboratory Tests 2 05/03/19 12:46: Immature Granulocyte % (Auto) 0.5, Neutrophils (%) (Auto) 64.4, Lymphocytes (%) (Auto) 20.4L, Monocytes (%) (Auto) 12.7H, Eosinophils (%) (Auto) 1.7, Basophils (%) (Auto) 0.3, Neutrophils # (Auto) 4.3, Lymphocytes # (Auto) 1.4L, Monocytes # (Auto) 0.8, Eosinophils # (Auto) 0.1, Basophils # (Auto) 0.0, Nucleated Red Blood Cells % (auto) 0.0, Prothrombin Time 15.2H, Prothromb Time International Ratio 1.23, Activated Partial Thromboplast Time 34.3, Anion Gap 5L, Glomerular Filtration Rate > 60.0, Calcium Level 8.6L, Total Creatine Kinase 503H, Creatine Kinase MB 3.7H, Creatine Kinase MB Relative Index 0.74, Troponin I < 0.02 05/03/19 21:25: Bedside Glucose (Misc Panel) 142H 05/04/19 05:52: Immature Granulocyte % (Auto) 0.3, Neutrophils (%) (Auto) 59.2, Lymphocytes (%) (Auto) 24.6, Monocytes (%) (Auto) 12.7H, Eosinophils (%) (Auto) 2.7, Basophils (%) (Auto) 0.5, Neutrophils # (Auto) 3.5, Lymphocytes # (Auto) 1.5, Monocytes # (Auto) 0.8, Eosinophils # (Auto) 0.2, Basophils # (Auto) 0.0, Nucleated Red Blood Cells % (auto) 0.0, Anion Gap 7L, Glomerular Filtration Rate > 60.0, Calcium Level 8.4L, Estimated Mean Plasma Glucose 134H, Hemoglobin A1c 6.3, Magn esium Level 1.9, Triglycerides Level 138, Total Cholesterol 107, LDL Cholesterol 45, Non-HDL Cholesterol (LDL + VLDL) 73, Total HDL Cholesterol 34L, Cholesterol/HDL Ratio 3.147 05/04/19 11:49: Bedside Glucose (Misc Panel) 87 05/04/19 11:59: CBC/BMP Laboratory Tests 05/03/19 12:46 05/04/19 05:52 GME ATTESTATION GME ATTESTATION My faculty preceptor for this patient encounter was physically present during the encounter and was fully available. All aspects of the patient interview, examination, medical decision making process, and medical care plan development were reviewed and approved by the faculty preceptor. The faculty preceptor is aware and concurs with the plan as stated in the body of this note and will attest to such by his/her cosignature. ATTENDING NOTE I, Sarah Hernandez, have independently examined this patient and performed my own physical exam, as well as reviewed the documentation and edited where necessary. I have discussed in detail with the resident / student the findings and plan of treatment as documented by the resident / student and edited their note. I agree with their findings and treatment plan and have edited their documentation. I will continue to follow the patient during this hospital stay. DAY HALE PGY-1 May 04, 2019 13:17 SARAH HERNANDEZ MD May 04, 2019 16:13
[2019-05-05 00:02] VITALS: BP 155/73
[2019-05-05 04:00] VITALS: BP 163/75
[2019-05-05 05:48] LABS: BASO % 0.1 % (0.0-1.0); EOS % 0.2 % (0.0-3.0); HEMATOCRIT 36.3 % (42.0-52.0); HEMOGLOBIN 12.4 g/dl (13.5-17.5); LYMPH # 1.4 10^3/uL (1.5-5.0); LYMPH % 13.3 % (24.0-44.0); MEAN CORPUSCULAR HEMOGLOBIN 33.6 pg (27.0-33.0); MEAN CORPUSCULAR HGB CONC 34.2 g/dl (32.0-36.5); MEAN CORPUSCULAR VOLUME 98.4 fl (80.0-96.0); MONO # 1.1 10^3/uL (0.0-0.8); MONO % 10.3 % (0.0-5.0); NEUTROPHILS # 7.9 10^3/uL (1.5-8.5); NEUTROPHILS % 75.7 % (36.0-66.0); PLATELET COUNT, AUTOMATED 222 10^3/uL (150-450); RED BLOOD COUNT 3.69 10^6/uL (4.30-6.10); WHITE BLOOD COUNT 10.5 10^3/uL (4.0-10.0)
[2019-05-05] MEDS: SLF 3 ML SYR IV SCH (05:51)
[2019-05-05 06:14] LABS: BLOOD UREA NITROGEN 21 MG/DL (7-18); CALCIUM LEVEL 8.3 MG/DL (8.8-10.2); CARBON DIOXIDE LEVEL 26 MEQ/L (21-32); CHLORIDE LEVEL 111 MEQ/L (98-107); CREATININE FOR GFR 0.99 MG/DL (0.70-1.30); GLOMERULAR FILTRATION RATE > 60.0 (>42); GLUCOSE, FASTING 146 MG/DL (70-100); MAGNESIUM LEVEL 1.8 MG/DL (1.8-2.4); POTASSIUM SERUM 3.6 MEQ/L (3.5-5.1); SODIUM LEVEL 142 MEQ/L (136-145)
[2019-05-05 08:00] VITALS: BP 141/64
[2019-05-05] MEDS: PANTOPRAZOLE 40MG TAB (PROTONIX) PO SCH (08:03)
[2019-05-05] MEDS: DOCUSATE SODIUM 100 MG CAP PO SCH (08:03)
[2019-05-05] MEDS: ASPIRIN 81 MG ENTERIC TAB PO SCH (08:03)
[2019-05-05] MEDS: valACYclovir HCL 500 MG TAB PO SCH (08:03)
[2019-05-05] MEDS: ATORVASTATIN 10 MG TAB PO SCH (08:03)
[2019-05-05] MEDS: predniSONE 20 MG TAB PO SCH (08:04)
[2019-05-05] MEDS: APIXABAN 5 MG TAB (ELIQUIS) PO SCH (08:04)
[2019-05-05] MEDS: CLOPIDOGREL 75 MG TAB PO SCH (08:04)
[2019-05-05] MEDS: TAMSULOSIN 0.4 MG CAP PO SCH (08:04)
[2019-05-05] MEDS: hydrOXYzine 25 MG TAB PO SCH (08:04)
[2019-05-05 08:05] VITALS: BP 141/64
[2019-05-05] MEDS: METOPROLOL TART 25 MG TABLET PO SCH (08:05)
[2019-05-05] MEDS: ACETAMINOPHEN TAB 650MG DOSE (2X325MG) PO PRN (08:06)
[2019-05-05] MEDS ORDERED: hydroCHLOROthiazide 12.5 MG CAPSULE PO SCH (09:00)
[2019-05-05] MEDS ORDERED: amLODIPine 5 MG TAB PO SCH (09:00)
[2019-05-05] MEDS ORDERED: VALA500T5 PO (09:22)
[2019-05-05] MEDS ORDERED: HYDR-3363 PO (09:22)
[2019-05-05] MEDS ORDERED: PRED10TA2 PO (09:22)
--- NOTE | 2019-05-05 10:19 | CR ---
DATE OF CONSULTATION: 05/04/2019 REFERRING PHYSICIAN: Dr. Sarah Sanchez REASON FOR CONSULTATION: Left-sided facial weakness and numbness of left side of body. HISTORY OF PRESENT ILLNESS Arnoldo Ng is a 74-year-old man with history of coronary artery disease, right leg deep vein thrombosis (DVT) in March 2019, paroxysmal atrial fibrillation, prediabetes, and hypertension who states that he went down state and was eating at a restaurant when district sales manager commented that he was slurring his speech. He came back home Monday and developed left-sided ear and head pain which was 8/10 in intensity, sharp, aching in character. It would come and go and would last for several hours a day. He would take Tylenol which would temporarily help. He noted left-sided facial numbness and felt that left side of face was drooping. He felt left arm and leg were tingling. He has right leg pain since his deep venous thrombosis in March 2019 and feels that his right leg may be slightly swollen. He denies any neck or back pain. He denies dysphagia, diplopia, urinary incontinence, falls or loss of consciousness. He denies any seizures. DIAGNOSTIC STUDIES: His MRI and MRA brain are within normal limits except minimal small vessel ischemic disease of brain. Carotid ultrasound was unremarkable except right vertebral artery could not be visualized. His LDL was 45 and HDL was 34 with total cholesterol 107. CBC and metabolic profile were within normal limits. PAST MEDICAL HISTORY: As per HPI. CURRENT MEDICATIONS: - amlodipine 5 mg p.o. daily - Eliquis 5 mg p.o. b.i.d. - aspirin 81 mg p.o. daily - Lipitor 10 mg p.o. daily - Plavix 75 mg p.o. daily - Restasis 0.05% eye drops 1 drop each eye b.i.d. - Colace 100 mg p.o. daily - hydrochlorothiazide 12.5 mg p.o. daily - Claritin 10 mg p.o. daily - metoprolol 25 mg p.o. b.i.d. - Protonix 40 mg p.o. daily - potassium citrate 1080 mg p.o. daily - Flomax 0.4 mg p.o. daily - albuterol - Flonase inhaler as needed ALLERGIES: STATINS although he is taking Lipitor. SULFA. LEVOFLOXACIN. PLAVIX. DIAZEPAM. His allergies to Plavix and statins should be rechecked. FAMILY HISTORY: Father and mother had stroke. SOCIAL HISTORY: He denies smoking, alcohol or illicit drugs. REVIEW OF SYSTEMS: All systems were reviewed and found to be noncontributory except as mentioned is history of present illness. PHYSICAL EXAMINATION: Temperature 98.1, pulse 66, blood pressure 149/74, 95% saturation on room air. Heart: Regular rate and rhythm. Lungs: Clear to auscultation. Abdomen: Soft, nontender, nondistended. No pedal edema. No musculoskeletal abnormalities. No rash. No signs of meningeal irritation. The patient is awake, alert, oriented to place, person and time. Normal speech comprehension and repetition. Extraoral muscles are intact. Visual palacios are full to confrontation. Recent and distant memory is intact. There is no nystagmus. He has left-sided lower motor neuron type facial weakness affecting his left side of face, left forehead and left eye. Strength is 5/5 in all four extremities. Tongue and uvula are midline. Deep tendon flexes are 1+ in arms and knees and absent at ankles. Gait is normal. ASSESSMENT: 1. Left-sided Wilkerson's palsy. 2. Minimal small vessel ischemic disease of brain. 3. Right leg DVT. 4. Paroxysmal atrial fibrillation. 5. Coronary artery disease. PLAN: 1. Prednisone 60 mg p.o. daily and taper off in the next 12 days. 2. Valtrex 5 mg p.o. b.i.d. for 10 days. 3. Continue aspirin 81 mg p.o. daily and Plavix 75 mg p.o. daily and Eliquis 5 mg p.o. b.i.d. 4. Continue Lipitor 10 mg p.o. daily. 5. His allergy list should be reviewed as the patient is taking Plavix and Lipitor, but these are also listed in his allergies. 6. Follow with our office in 2-4 weeks after hospital discharge.
--- NOTE | 2019-05-05 12:52 | DS.PDOC ---
Discharge Summary General Date of Admission May 03, 2019 at 14:50 Date of Discharge 05/05/2019 Discharge Summary PROCEDURES PERFORMED DURING STAY: [None]. ADMITTING DIAGNOSES / DISCHARGE DIAGNOSES: Suspected Wilkerson's Palsy HTN Chronic OH Hx of R LE DVT Paroxysmal atrial fibrillation DLP Elevated Glucose - likely 2/2 Pre-diabetes MGUS Hx of Kidney stones BPH GERD DVT prophylaxis COMPLICATIONS/CHIEF COMPLAINT: Left facial droop and left sided sensory changes HISTORY OF PRESENT ILLNESS: Patient is a 74-year-old male with a PMHx of OH (01/2018, on ASA / Plavix), Hx of R LE DVT (03/2019, on Eliquis), Paroxysmal atrial fibrillation, HTN, DLP, Elevated Glucose (Pre-diabetic), MGUS?, GERD who presented to the emergency room with complaints of left-sided upper and lower extremity numbness and tingling associated with left-sided facial droop. Patient reports that his symptoms began on Monday afternoon after a vial gauger had noted facial changes while he was eating lunch. Patient reports that currently he is experiencing some left ear pain, described as throbbing, less than 5/10 without any alleviating or record and factors. Patient denies any difficulty swallowing. Denies any slurred speech. Denies any hearing difficulty, or ringing in ears. Patient denies any difficulty with ambulation. Patient was admitted to the hospitalist service for potential stroke. Neurology was called on consultation. HOSPITAL COURSE: Numbness and tingling of left upper and lower extremities./Left-sided facial numbness and tingling/left-sided facial droop - possibly 2/2 Wilkerson's Palsy, less likely 2/2 CVA / TIA - Patient has reported that his symptoms still persist, however, has shown very mild improvement - Patient was outside the window to receive tPA; had denied any slurring of his speech or dysphagia - Left facial droop still persists - CT head 05/03: No acute intracranial process. - CXR 05/03: No acute infiltrate. - MRI Brain 05/03: No acute intracranial abnormality. - MRA Brain 05/03: No hemodynamically significant stenosis or large vessel occlusion. - Carotid duplex US 05/03: 1. Right vertebral artery is not discretely visualized. 2. No definite significant stenosis involving the ICAs. - Currently on ASA 81, Plavix 75, Atorvastatin 10 and Elqiuis (re: recent DVT) - Neurology was consulted; recommended Prednisone Taper / Valtrex and Lyme workup - Patient has cleared PT and will have outpatient follow up with PCP for results of Lyme workup HTN - BP moderately elevated - Will resume HCTZ and Amlodipine given that stroke has been ruled out - Will continue with metoprolol and hydralazine PRN Chronic OH - Patient reports that he had an episode of OH in 01/2018 - c/w ASA, Plavix, Atorvastatin, Metoprolol Hx of R LE DVT - Recent history of DVT on 03/2019 - c/w full anticoagulation with Eliquis Paroxysmal atrial fibrillation - EKG revealed that the patient is currently in sinus rhythm - Continue with rate control medications with metoprolol - Continue with full anticoagulation with Eliquis DLP - c/w Atorvastatin Elevated Glucose - likely 2/2 Pre-diabetes - A1c of 6.3 - c/w ISS for now MGUS Hx of Kidney stones - Currently is asymptomatic BPH - c/w Tamsulosin GERD - c/w Protonix DVT prophylaxis - c/w full anticoagulation with Eliquis DISCHARGE MEDICATIONS: Please see below. ALLERGIES: Please see below. PHYSICAL EXAMINATION ON DISCHARGE: Vitals (See below) General: Lying in bed, no acute distress, comfortable, Awake / Alert HEENT: NC, AT CVS: RRR, +S1S2 Lungs: Fair air entry b/l, -w/r/r Abdomen: Soft, ND, NT Extremities: - Edema, - Calf tenderness LABORATORY DATA: Please see below. ACTIVITY: [As tolerated]. DISCHARGE PLAN: Follow up with Dr. Cem Brandt and Dr. Young within 7 days Remain compliant with treatment plan and medications Return to the ER if you experience any problems DISPOSITION: Home, Self-Care. DISCHARGE CONDITION: [Stable]. TIME SPENT ON DISCHARGE: 35 minutes Vital Signs/I&Os Vital Signs Date Time Temp Pulse Resp B/P (MAP) Pulse Ox O2 Delivery O2 Flow Rate FiO2 05/05/19 08:05 65 141/64 05/05/19 08:00 98.0 17 95 Room Air I&O- Last 24 Hours up to 6 AM 05/05/19 06:00 Intake Total 2700 ml Output Total 1175 ml Balance 1525 ml Laboratory Data Labs 24H Laboratory Tests 2 05/05/19 05:28: Immature Granulocyte % (Auto) 0.4, Neutrophils (%) (Auto) 75.7H, Lymphocytes (%) (Auto) 13.3L, Monocytes (%) (Auto) 10.3H, Eosinophils (%) (Auto) 0.2, Basophils (%) (Auto) 0.1, Neutrophils # (Auto) 7.9, Lymphocytes # (Auto) 1.4L, Monocytes # (Auto) 1.1H, Eosinophils # (Auto) 0.0, Basophils # (Auto) 0.0, Nucleated Red Blood Cells % (auto) 0.0, Anion Gap 5L, Glomerular Filtration Rate > 60.0, Calcium Level 8.3L, Magnesium Level 1.8 CBC/BMP Laboratory Tests 05/05/19 05:28 Discharge Medications Scheduled Amlodipine Besylate (Amlodipine Besylate) 5 Mg Tablet, 5 MG PO DAILY, (Reported) Apixaban (Eliquis) 5 Mg Tablet, 5 MG PO BID, (Reported) Aspirin (Aspirin EC) 81 Mg Tab, 81 MG PO DAILY, (Reported) Atorvastatin Calcium (Atorvastatin Calcium) 10 Mg Tab, 10 MG PO DAILY, (Reported) Clopidogrel Bisulfate (Clopidogrel) 75 Mg Tab, 75 MG PO DAILY, (Reported) Cyclosporine (Restasis) 0.05% Droperette, 1 DROP OU BID, (Reported) Docusate Sodium (Colace) 100 Mg Capsule, 100 MG PO DAILY, (Reported) Glucosam/Sylvester-Msm1/C/Stevie/Bosw (Osteo Bi-Flex Caplet) 1 Each Tablet, 2 TAB PO DAILY, (Reported) Hydrochlorothiazide (Hydrochlorothiazide) 12.5 Mg Cap, 12.5 MG PO DAILY, (Reported) Loratadine (Loratadine) 10 Mg Tab.rapdis, 10 MG PO DAILY, (Reported) Metoprolol Tartrate (Metoprolol Tartrate) 25 Mg Tab, 25 MG PO BID, (Reported) Pantoprazole Sodium (Pantoprazole Sodium) 40 Mg Tab, 40 MG PO DAILY, (Reported) Potassium Citrate (Potassium Citrate 10MEQ (Urocit-K)) 1,080 Mg Tab, 1,080 MG PO DAILY, (Reported) Prednisone (Prednisone) 10 Mg Tablet, 10 MG PO TAPER 6 tabs qd x 1 day, 4 tabs qd x 3 days, then 3 tabs qd x 3 days, then 2 tabs qd x 3 days, then 1 tab qd x 3 days and stop Tamsulosin Hcl (Tamsulosin HCl) 0.4 Mg Cap, 0.4 MG PO DAILY, (Reported) Valacyclovir HCl (Valacyclovir) 500 Mg Tablet, 500 MG PO BID l Gasseri/B Bifidum/B Longum ([employer] Capsule) 1 Each Capsule, 1 CAP PO DAILY, (Reported) Scheduled PRN Albuterol Sulfate (Albuterol Sulfate Hfa) 8.5 Gm Hfa.aer.ad, 2 PUFFS INH Q4H PRN for SHORTNESS OF BREATH, (Reported) Fluticasone Propionate (Fluticasone Propionate 0.005%) 15 Gm Oint...g., 1 DOSE TOP BID PRN for ITCHING, (Reported) APPLY TO LOWER LEGS AND UPPER BACK Hydroxyzine HCl (Hydroxyzine HCl) 25 Mg Tablet, 25 MG PO BIDP PRN for ANXIETY Selenium Sulfide (Selenium Sulfide 2.5%) 118 Ml Lotion, 1 DOSE TOP DAILY PRN for DRY SKIN, (Reported) APPLY TO FACE AND SCALP Allergies Coded Allergies: Qhsymvw-Eev-Kpy Reductase Inhibitor (Verified Allergy, Unknown, 10/26/18) Sulfa (Sulfonamide Antibiotics) (Verified Allergy, Unknown, 10/26/18) levofloxacin (Verified Allergy, Unknown, 05/03/19) clopidogrel (Verified Adverse Reaction, Intermediate, Fainting /Dizziness, 10/26/18) diazepam (Verified Adverse Reaction, Unknown, Hyper, 10/26/18) BIBI HERNANDEZ MD May 05, 2019 12:52
[2019-05-07 14:12] LABS: Lyme Disease IgG/IgM Antibodie <0.91 ISR (0.00-0.90); Lyme Disease IgM Ab Quantitati <0.80 index (0.00-0.79)
== END 2019-05-05 10:24 | disposition home or self-care (01) | DRG 74 ==
LOC: M ED 11:39 → EDBD 11:39 → M ED INP 14:50 → M PCU 16:28
PROVIDERS: ADMIT Internal Medicine; ATTEND Internal Medicine
DX: G51.0 Bell's palsy (principal); I10 Essential (primary) hypertension; D47.2 Monoclonal gammopathy; I25.2 Old myocardial infarction; I48.0 Paroxysmal atrial fibrillation; K21.9 Gastro-esophageal reflux disease without esophagitis; N40.0 Benign prostatic hyperplasia without lower urinary tract symptoms; Z86.718 Personal history of other venous thrombosis and embolism; Z87.442 Personal history of urinary calculi; R73.03 Prediabetes; Z79.01 Long term (current) use of anticoagulants; Z79.899 Other long term (current) drug therapy; Z79.82 Long term (current) use of aspirin; Z88.8 Allergy status to other drugs, medicaments and biological substances; Z88.2 Allergy status to sulfonamides; I25.10 Atherosclerotic heart disease of native coronary artery without angina pectoris

== ENCOUNTER → 2019-05-31 | Outpatient (REF) | payer MEDICARE, OTHER ==
[~2019-05-31] MED LIST changes: +ALBU8.5H INH; +AMLO5TAB6 PO; +CETI10CA13 PO; +COLA100C5 PO; +ELIQ5TAB PO; +ERYT1OIN26; +FLUT0.003 TOP; +HYDR-3363 PO; +MIRA3350 PO; +OSTETAB2 PO; +PHILCAP4 PO; +PRED10TA2 PO; +REFRSOL OP; +REST0.05 OU; +SELE25SHA TOP; +VALA500T5 PO; +colon health PO
[2019-06-02 00:06] LABS: FREE KAPPA LIGHT CHAINS SERUM 16.9 mg/L (3.3-19.4); FREE LAMBDA LIGHT CHAINS SERUM 53.9 mg/L (5.7-26.3); KAPPA/LAMBDA RATIO SERUM 0.31 (0.26-1.65)
== END ==
LOC: M LAB REF 12:17
PROVIDERS: ATTEND Family Medicine
DX: D47.2 Monoclonal gammopathy (principal)

== ENCOUNTER 2019-12-16 14:35 | Emergency (ER) | payer MEDICARE, BC ==
[~2019-12-16] VITALS: Ht 170.2 cm; Wt 106.5 kg
[~2019-12-16 14:35] MED LIST changes: -ERYT1OIN26; +ERYT5OIN25; +OMEP1CAP73; -OMEP20CA4
[2019-12-16] MEDS ORDERED: NS 500 ML IV ONE (15:15)
[2019-12-16 15:38] LABS: BASO % 0.4 % (0.0-1.0); EOS # 0.2 10^3/uL (0.0-0.5); EOS % 2.2 % (0.0-3.0); HEMATOCRIT 44.3 % (42.0-52.0); HEMOGLOBIN 15.2 g/dl (13.5-17.5); LYMPH # 1.6 10^3/uL (1.5-5.0); LYMPH % 23.6 % (24.0-44.0); MEAN CORPUSCULAR HEMOGLOBIN 33.8 pg (27.0-33.0); MEAN CORPUSCULAR HGB CONC 34.3 g/dl (32.0-36.5); MEAN CORPUSCULAR VOLUME 98.4 fl (80.0-96.0); MONO # 0.9 10^3/uL (0.0-0.8); MONO % 12.4 % (0.0-5.0); NEUTROPHILS # 4.2 10^3/uL (1.5-8.5); NEUTROPHILS % 61.3 % (36.0-66.0); PLATELET COUNT, AUTOMATED 259 10^3/uL (150-450); WHITE BLOOD COUNT 6.9 10^3/uL (4.0-10.0)
[2019-12-16] MEDS ORDERED: SIMETHICONE 80 MG CHEW TAB PO ONE (17:00)
[2019-12-16 17:45] LABS: ALBUMIN 3.2 GM/DL (3.2-5.2); ALT/SGPT 27 U/L (12-78); BILIRUBIN,DIRECT 0.1 MG/DL (0.0-0.2); BILIRUBIN,TOTAL 0.3 MG/DL (0.2-1.0); BLOOD UREA NITROGEN 14 MG/DL (7-18); CALCIUM LEVEL 8.3 MG/DL (8.8-10.2); CARBON DIOXIDE LEVEL 29 MEQ/L (21-32); CHLORIDE LEVEL 108 MEQ/L (98-107); CREATININE FOR GFR 1.09 MG/DL (0.70-1.30); GLOMERULAR FILTRATION RATE > 60.0 (>42); GLUCOSE, FASTING 99 MG/DL (70-100); LIPASE 97 U/L (73-393); POTASSIUM SERUM 4.4 MEQ/L (3.5-5.1); SODIUM LEVEL 141 MEQ/L (136-145); TOTAL PROTEIN 7.5 GM/DL (6.4-8.2)
[2019-12-16 18:32] LABS: CK-MB VALUE MASS 3.3 NG/ML (<3.6); CPK CREATINE PHOSPHOKINASE 459 U/L (39-308); MB/CK RELATIVE INDEX 0.72 (< OR =4); TROPONIN I < 0.02 NG/ML (< 0.10)
[2019-12-16] MEDS ORDERED: SIME180C PO (19:03)
[2019-12-16 19:20] VITALS: BP 142/65
--- NOTE | 2019-12-16 21:09 | ECGEPIP ---
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 Order Number: [id number] Reading MD: Xiomy Bradford Measurements Intervals [place] Rate: 66 P: 60 WI: 172 QRS: 23 QRSD: 86 T: 35 QT: 383 QTc: 402 Interpretive Statements SINUS RHYTHM NSTTW abnormalities SIMILAR 05/03/19 Electronically Signed on 12-16-2019 21:09:10 EDT by Xiomy Bradford
--- NOTE | 2019-12-17 01:35 | REP ---
CT ABDOMEN AND PELVIS WITHOUT CONTRAST: CT abdomen and pelvis performed without oral or IV contrast. Sagittal and coronal reconstruction images are performed. Visualized lung bases demonstrate mild interstitial fibrotic change. The liver is grossly unremarkable. The patient has had a prior cholecystectomy. There is no biliary dilatation. Spleen is normal in size with no intrinsic abnormality. The adrenal glands are normal. The pancreas is grossly unremarkable. Right kidney demonstrates a 5 mm intrarenal calculus. There is no hydroureteronephrosis. Left kidney demonstrates a cystic structure in the renal pelvis, which has increased since prior CT of 01/23/2017. Maximum diameter is 5.3 cm. Previously, this measured 4.0 cm. This could represent increased size of a parapelvic cyst or worsening of a left UPJ obstruction with hydronephrosis. There is no hydroureter. No left renal calculi are seen. There is mild atherosclerotic calcification of the abdominal aorta without aneurysm. There is no adenopathy. There is no free air or free fluid. There is diffuse colonic diverticulosis. There is no evidence of acute diverticulitis. The appendix is normal. There is no pelvic mass. The urinary bladder is not well distended and not well evaluated. There are degenerative changes of the spine. IMPRESSION: Diffuse colonic diverticulosis without evidence of acute diverticulitis. Cystic structure left renal pelvis has increased since prior CT in 2017. I suspect this represents increased size of a left parapelvic cyst. However, I cannot exclude worsening left UPJ obstruction and hydronephrosis. No right hydroureteronephrosis. There is a 5 mm intrarenal calculus on the right. The appendix is normal. Electronically Signed by Edgar Butts MD 12/18/2019 09:43 P
--- NOTE | 2019-12-19 13:31 | ED PDOC ---
Post-Departure Follow-Up ct abd/p faxed to dr moreno for fu Jhon Irving MD Dec 19, 2019 13:31
== END 2019-12-16 19:21 | disposition home or self-care (01) ==
LOC: M ED 14:35
DX: K57.30 Diverticulosis of large intestine without perforation or abscess without bleeding (principal); N20.0 Calculus of kidney; Z79.51 Long term (current) use of inhaled steroids; Z79.52 Long term (current) use of systemic steroids; Z79.899 Other long term (current) drug therapy; Z88.2 Allergy status to sulfonamides; Z88.1 Allergy status to other antibiotic agents; Z88.8 Allergy status to other drugs, medicaments and biological substances

== ENCOUNTER → 2020-01-29 | Outpatient (CLI) | payer MEDICARE, BC ==
[~2020-01-29] MED LIST changes: +AMLO1TAB24 PO; -AMLO5TAB6 PO; +PANT40TA29 PO; -PANT40TA3 PO; +SIME180C PO
--- NOTE | 2020-01-29 13:32 | REP ---
KUB: Two views. HISTORY: Kidney stone. Comparison abdominal film October 23, 2014. Comparison CT study December 16, 2019. FINDINGS: There is a calcification in the upper pole right kidney again seen measuring 4.8 mm in diameter. There are smaller adjacent calcifications. There is a surgical clip in the gallbladder fossa. No other urinary tract calculus is appreciated. The bowel gas pattern is normal. Psoas margins are intact. IMPRESSION: Intrarenal calculus upper pole right kidney again seen. Electronically Signed by Refugio Angulo MD 01/29/2020 01:40 P
== END ==
LOC: M RAD 12:14
PROVIDERS: ATTEND Urology
DX: N20.0 Calculus of kidney (principal)

== ENCOUNTER 2020-03-29 14:19 | Emergency (ER) | payer MEDICARE, BC ==
[~2020-03-29] VITALS: Ht 167.6 cm; Wt 108.0 kg
[2020-03-29] MEDS ORDERED: TETRACAINE 0.5% OPHTH SOLN 4ML OD ONE (15:15)
[2020-03-29] MEDS ORDERED: FLUORESCEIN OPHTH 1 MG STRIP OD ONE (15:15)
[2020-03-29 16:15] VITALS: BP 150/67
== END 2020-03-29 16:17 | disposition home or self-care (01) ==
LOC: M ED 14:19
DX: H57.11 Ocular pain, right eye (principal); I10 Essential (primary) hypertension; I48.91 Unspecified atrial fibrillation; K21.9 Gastro-esophageal reflux disease without esophagitis; Z86.718 Personal history of other venous thrombosis and embolism; M54.5 Low back pain; Z88.2 Allergy status to sulfonamides; Z88.8 Allergy status to other drugs, medicaments and biological substances; Z79.899 Other long term (current) drug therapy; Z79.01 Long term (current) use of anticoagulants; Z79.51 Long term (current) use of inhaled steroids

== ENCOUNTER → 2021-02-15 | Outpatient (CLI) | payer MEDICARE, BC ==
[~2021-02-15] MED LIST changes: +LORA-674 PO; -SIME180C PO; +SIME180C25 PO
[2021-02-15 17:28] LABS: BLOOD UREA NITROGEN 17 MG/DL (7-18); CALCIUM LEVEL 8.6 MG/DL (8.8-10.2); CARBON DIOXIDE LEVEL 29 MEQ/L (21-32); CHLORIDE LEVEL 107 MEQ/L (98-107); CREATININE FOR GFR 1.17 MG/DL (0.70-1.30); GLOMERULAR FILTRATION RATE > 60.0 (>42); GLUCOSE, FASTING 120 MG/DL (70-100); POTASSIUM SERUM 3.5 MEQ/L (3.5-5.1); SODIUM LEVEL 143 MEQ/L (136-145)
== END ==
LOC: M PLALAB 14:46
PROVIDERS: ATTEND Urology
DX: N13.5 Crossing vessel and stricture of ureter without hydronephrosis (principal); N28.1 Cyst of kidney, acquired
CPT/HCPCS: 36415; 80048; G0463

== ENCOUNTER → 2021-02-19 | Outpatient (CLI) | payer MEDICARE, BC ==
[~2021-02-19] MED LIST changes: +ISOVUE-370 76% 100ML VIAL As Ordered ONE
--- NOTE | 2021-02-19 15:22 | REP ---
INDICATION: URETRAL OBSTRUCTION, RENAL CYST. COMPARISON: Multiple the latest 11/18/2020 from an outside institution TECHNIQUE: Standard helical technique before and after intravenous contrast administration. 100 cc Isovue 370 was utilized. FINDINGS: There are chronic lung base changes status quo. The pre contrast enhanced portion examination shows a patent splenic densities to be within normal limits. There is a 7 mm size nonobstructing right nephrolith status quo. There are no ureterolith sore urinary bladder calcifications. There is corpora amylacea status quo. There is a large left renal parapelvic cysts. The contrast-enhanced portion examination including delayed imaging and MIP reformatted 3D imaging of the renal collecting system bilaterally shows a large left renal parapelvic cysts with measures approximately 6 x 5.8 x 5.5 cm. This cyst is causing caliceal compression and compression of the corticomedullary junction. There is no hydronephrosis or enhancing renal masses. The liver, spleen, pancreas, and adrenal glands are within normal limits. The abdominal aorta and para-aortic regions are within normal limits. The bowel loops and the mesenteries are within normal limits. There is colonic diverticulosis. There is no free fluid or free air. Delayed imaging through the renal collecting system bilaterally shows complete opacification of the right renal collecting system and near complete opacification of the left renal collecting system. Delayed imaging through the urinary bladder shows no evidence of an intraluminal filling defect. Bone window technique throughout the examination shows chronic spinal degenerative changes. Degenerative changes seen involving the hips and sacroiliac joints as well. IMPRESSION: 1. Large left renal cyst as described above. 2. There is no evidence of acute intra-abdominal or intrapelvic disease. Other findings as described above. <Electronically signed by Haroon Melendez > 02/19/21 [id number]
== END ==
LOC: M RAD 14:06
PROVIDERS: ATTEND Urology
DX: N28.1 Cyst of kidney, acquired (principal); N13.5 Crossing vessel and stricture of ureter without hydronephrosis
CPT/HCPCS: 74178; Q9967

== ENCOUNTER → 2021-03-12 | Outpatient (CLI) | payer MEDICARE, BC ==
[~2021-03-12] MED LIST changes: -ISOVUE-370 76% 100ML VIAL As Ordered ONE
[2021-03-12 13:33] LABS: HEMATOCRIT 41.4 % (42.0-52.0); HEMOGLOBIN 13.6 g/dl (13.5-17.5); MEAN CORPUSCULAR HEMOGLOBIN 32.5 pg (27.0-33.0); MEAN CORPUSCULAR HGB CONC 32.9 g/dl (32.0-36.5); MEAN CORPUSCULAR VOLUME 98.8 fl (80.0-96.0); PLATELET COUNT, AUTOMATED 240 10^3/uL (150-450); RED BLOOD COUNT 4.19 10^6/uL (4.30-6.10); WHITE BLOOD COUNT 6.4 10^3/uL (4.0-10.0)
[2021-03-12 13:45] LABS: INR 1.32; PROTHROMBIN TIME 16.8 SECONDS (12.7-14.5)
[2021-03-12 13:46] LABS: PARTIAL THROMBOPLASTIN TIME 33.3 SECONDS (25.9-37.0)
== END ==
LOC: M PLALAB 10:57
PROVIDERS: ATTEND Urology
DX: N28.1 Cyst of kidney, acquired (principal)

== ENCOUNTER → 2021-03-19 | Outpatient (CLI) | payer MEDICARE, BC ==
[~2021-03-19] MED LIST changes: +LIDOCAINE 1% MDV 20ML VIAL As Ordered ONE; +SODIUM BICARBONATE 8.4% INJ 50MEQ 50 ML VIAL As Ordered ONE
--- NOTE | 2021-03-19 16:24 | REP ---
INDICATION: s/p left parapelvic renal cyst bx COMPARISON: None. TECHNIQUE: CT Scan of the abdomen was performed without intravenous contrast. Sagittal and coronal reconstruction images are performed. FINDINGS: Lung bases: There are stable chronic changes in the lung bases bilaterally. Liver: Grossly unremarkable. Gallbladder: Prior cholecystectomy. Spleen: Grossly unremarkable. Adrenals: Grossly unremarkable. Pancreas: Grossly unremarkable. Kidneys: Subcentimeter right renal calculus is again noted without hydronephrosis. The patient had ultrasound-guided cyst aspiration today on the left. The left renal cyst has significantly decreased in size. There is no perinephric hematoma. Small and large bowel: There is colonic diverticulosis. Free fluid: None. Abdominal aorta: No aneurysm or dissection. Adenopathy: None. Osseous structures: There are degenerative changes of the spine. IMPRESSION: No perinephric hematoma status post left renal cyst aspiration. <Electronically signed by Edgar Butts > 03/19/21 [id number]
[2021-03-19 16:25] VITALS: BP 114/66
--- NOTE | 2021-03-19 17:26 | REP ---
INDICATION: RENAL CYST. The patient has a history of left parapelvic renal cyst COMPARISON: None. TECHNIQUE: The procedure was performed by NYDIA Avila, under the direct supervision of Dr. Butts. The risks and benefits of the procedure were explained to the patient and an informed consent was obtained both verbally and written. Directly prior to the start of the procedure a formal time-out was completed in the procedure room. The left renal parapelvic cyst was localized ultrasound guidance. The skin was prepped and draped in a sterile fashion. Nineteen ML of buffered lidocaine was used as a local anesthetic. FINDINGS: Using ultrasound guidance a 22 gauge spinal needle was inserted and advanced into the parapelvic cyst. Approximately 13 mL was aspirated. A 19 gauge coaxial needle was then inserted and advanced into the left renal parapelvic cyst to try to aspirate more fluid. Another 17 mL was aspirated. The 30 mL specimen was then sent to cytology for further analysis. The patient tolerated the procedure well and there were no immediate complications. After approximately [address] of the abdomen was obtained to evaluate for any signs of a hematoma. No hematoma was visualized and the patient was discharged from the department. IMPRESSION: 1. Ultrasound-guided left renal parapelvic cyst aspiration. <Electronically signed by Samantha Rodríguez > 03/19/21 [id number] <Electronically signed by Edgar Butts > 03/19/21 [id number]
== END ==
LOC: M IRPRO 11:44
PROVIDERS: ATTEND Urology
DX: N28.1 Cyst of kidney, acquired (principal)

== ENCOUNTER → 2021-10-05 | Outpatient (CLI) | payer MEDICARE, BC ==
[~2021-10-05] MED LIST changes: -LIDOCAINE 1% MDV 20ML VIAL As Ordered ONE; -SODIUM BICARBONATE 8.4% INJ 50MEQ 50 ML VIAL As Ordered ONE
== END ==
LOC: M RAD 12:14
PROVIDERS: ATTEND Urology
DX: N28.1 Cyst of kidney, acquired (principal); N13.5 Crossing vessel and stricture of ureter without hydronephrosis

== ENCOUNTER → 2021-10-22 | Outpatient (CLI) | payer MEDICARE, BC | LOC: M RAD 10:36 | PROVIDERS: ATTEND Physician Assistant Medical | DX: M79.661 Pain in right lower leg (principal); R22.41 Localized swelling, mass and lump, right lower limb ==

== ENCOUNTER → 2021-12-04 | Outpatient (CLI) | payer MEDICARE, BC ==
[~2021-12-04] MED LIST changes: +DOXY20TA4 PO; +ELID1CRE11 TOP; +TRIA1CR80 TOP; +XIID5DRO OU
== END ==
LOC: M LABSMTC 09:12
PROVIDERS: ATTEND Anesthesiology
DX: Z01.812 Encounter for preprocedural laboratory examination (principal); Z20.822 Contact with and (suspected) exposure to COVID-19

== ENCOUNTER 2022-01-31 17:21 | Emergency (ER) | payer MEDICARE, BC ==
[~2022-01-31] VITALS: Ht 167.6 cm; Wt 106.3 kg
[2022-01-31 21:44] LABS: BASO % 0.4 % (0.0-1.0); EOS # 0.2 10^3/uL (0.0-0.5); HEMATOCRIT 41.3 % (42.0-52.0); HEMOGLOBIN 13.6 g/dl (13.5-17.5); LYMPH # 1.9 10^3/uL (1.5-5.0); LYMPH % 23.6 % (24.0-44.0); MEAN CORPUSCULAR HEMOGLOBIN 32.4 pg (27.0-33.0); MEAN CORPUSCULAR HGB CONC 32.9 g/dl (32.0-36.5); MEAN CORPUSCULAR VOLUME 98.3 fl (80.0-96.0); MONO # 1.1 10^3/uL (0.0-0.8); MONO % 14.4 % (2.0-8.0); NEUTROPHILS # 4.6 10^3/uL (1.5-8.5); NEUTROPHILS % 58.3 % (36.0-66.0); PLATELET COUNT, AUTOMATED 254 10^3/uL (150-450); WHITE BLOOD COUNT 7.9 10^3/uL (4.0-10.0)
[2022-01-31 23:15] LABS: CK-MB VALUE MASS 4.3 NG/ML (<3.6); MB/CK RELATIVE INDEX 1.16 (< OR =4)
[2022-02-01 00:30] VITALS: BP 163/70
== END 2022-02-01 00:59 | disposition home or self-care (01) ==
LOC: M ED 17:21
DX: R22.41 Localized swelling, mass and lump, right lower limb (principal); I25.2 Old myocardial infarction; Z86.79 Personal history of other diseases of the circulatory system; Z87.442 Personal history of urinary calculi; Z88.1 Allergy status to other antibiotic agents; Z88.2 Allergy status to sulfonamides; Z79.01 Long term (current) use of anticoagulants; Z79.899 Other long term (current) drug therapy

== ENCOUNTER → 2022-02-07 | Outpatient (CLI) | payer MEDICARE, BC | LOC: M WUC 13:52 | PROVIDERS: ATTEND Physician Assistant | DX: M79.604 Pain in right leg (principal) ==

== ENCOUNTER → 2022-02-09 | Outpatient (CLI) | payer MEDICARE, BC ==
[~2022-02-09] MED LIST changes: +GASTROGRAFIN SOLUTION 30ML (Q9963) As Ordered ONE
== END ==
LOC: M RAD 14:54
PROVIDERS: ATTEND Physician Assistant
DX: R10.30 Lower abdominal pain, unspecified (principal)
CPT/HCPCS: 74176; Q9963

== ENCOUNTER → 2022-05-19 | Outpatient (CLI) | payer MEDICARE, BC ==
[~2022-05-19] MED LIST changes: -GASTROGRAFIN SOLUTION 30ML (Q9963) As Ordered ONE
== END ==
LOC: M RAD 15:00
PROVIDERS: ATTEND Urology
DX: N28.1 Cyst of kidney, acquired (principal)

== ENCOUNTER → 2022-10-20 | Outpatient (REF) | payer MEDICARE, BC ==
[~2022-10-20] MED LIST changes: +ALBU6.7H6 INH; +ATOR1TAB19; +EZET10TA21; +FINA5TAB2; +KETO2CR; +L.RH1CAP2 PO; +OSTE5TAB PO; -PHILCAP4 PO; +PHILLIPS COLON1 CAP PO; +REST0.05 OP; +VIT D 2000 UNIT PO
[2022-10-20 14:49] LABS: IMMUNOGLOBULIN A 166.2 MG/DL (40-350)
[2022-10-20 14:50] LABS: IMMUNOGLOBULIN M 45.3 MG/DL (50-300)
[2022-10-25 18:07] LABS: IMMUNOTYPING SERUM IGA SO 165 mg/dL (61-437); IMMUNOTYPING SERUM IGM SO 46 mg/dL (15-143)
== END ==
LOC: M LAB REF 12:45
PROVIDERS: ATTEND Family Medicine
DX: D47.2 Monoclonal gammopathy (principal)

== ENCOUNTER → 2022-10-28 | Outpatient (CLI) | payer MEDICARE, BC ==
[~2022-10-28] MED LIST changes: +ISOVUE-370 76% 100ML VIAL As Ordered ONE
== END ==
LOC: M RAD 12:21
PROVIDERS: ATTEND Nurse Practitioner Family
DX: I48.0 Paroxysmal atrial fibrillation (principal); R10.9 Unspecified abdominal pain; Z79.01 Long term (current) use of anticoagulants
CPT/HCPCS: 74177; 83690; 83880; Q9967

== ENCOUNTER → 2023-04-18 | Outpatient (REF) | payer MEDICARE, BC ==
[~2023-04-18] MED LIST changes: -ISOVUE-370 76% 100ML VIAL As Ordered ONE; +LORA-1041 PO; -LORA-674 PO
[2023-04-18 19:12] LABS: IMMUNOGLOBULIN A 148.6 MG/DL (40-350); IMMUNOGLOBULIN M 49.6 MG/DL (50-300)
== END ==
LOC: M LAB REF 18:04
PROVIDERS: ATTEND Family Medicine
DX: D47.2 Monoclonal gammopathy (principal)

== ENCOUNTER → 2023-07-04 | Outpatient (CLI) | payer MEDICARE, BC ==
[2023-07-04 13:35] LABS: BLOOD UREA NITROGEN 21 MG/DL (9-23); CALCIUM LEVEL 8.7 MG/DL (8.3-10.6); CARBON DIOXIDE LEVEL 28 MMOL/L (20-31); CHLORIDE LEVEL 103 MMOL/L (98-107); CREATININE FOR GFR 0.92 MG/DL (0.70-1.30); GLOMERULAR FILTRATION RATE > 60.0 (>42); GLUCOSE, FASTING 113 MG/DL (74-106); POTASSIUM SERUM 4.1 MMOL/L (3.5-5.1); SODIUM LEVEL 138 MMOL/L (136-145)
== END ==
LOC: M LAB 12:26
PROVIDERS: ATTEND Urology
DX: N28.1 Cyst of kidney, acquired (principal)

== ENCOUNTER → 2023-10-26 | Outpatient (CLI) | payer MEDICARE, BC ==
[~2023-10-26] MED LIST changes: -DOXY20TA4 PO; +DOXY20TA6 PO; +FUROSEMIDE 20MG/2ML VIAL As Ordered ONE
== END ==
LOC: M RAD 10:44
PROVIDERS: ATTEND Urology
DX: N13.5 Crossing vessel and stricture of ureter without hydronephrosis (principal)
CPT/HCPCS: 78708; A9562; J1940

== ENCOUNTER → 2024-01-04 | Outpatient (REF) | payer MEDICARE, BC ==
[~2024-01-04] MED LIST changes: +AMOX875T2 PO; -FINA5TAB2; +FINA5TAB2 PO; -FUROSEMIDE 20MG/2ML VIAL As Ordered ONE; +LORA-243 PO; +METR-265 PO
[2024-01-04 13:57] LABS: IMMUNOGLOBULIN A 175.5 MG/DL (40-350); IMMUNOGLOBULIN G 2400 MG/DL (650-1600)
[2024-01-05 07:31] LABS: PROTEIN, TOTAL SO 8.4 g/dL (6.1-8.1)
[2024-01-05 11:11] LABS: FREE LAMBDA LIGHT CHAINS SERUM 108.9 mg/L (5.7-26.3); KAPPA/LAMBDA RATIO SERUM 0.27 (0.26-1.65)
== END ==
LOC: M LAB REF 12:03
PROVIDERS: ATTEND Family Medicine
DX: D47.2 Monoclonal gammopathy (principal)

== ENCOUNTER → 2024-02-20 | Outpatient (REF) | payer MEDICARE, BC | LOC: M LAB REF 12:22 | PROVIDERS: ATTEND Physician Assistant | DX: J06.9 Acute upper respiratory infection, unspecified (principal); R05.9 Cough, unspecified; Z20.828 Contact with and (suspected) exposure to other viral communicable diseases ==

== ENCOUNTER 2024-05-09 12:25 | Observation (INO) | payer MEDICARE, BC ==
[~2024-05-09] VITALS: Ht 167.6 cm; Wt 104.2 kg
[~2024-05-09 12:25] MED LIST changes: -SIME180C25 PO; +SIME1CAP4 PO
[2024-05-09] MEDS ORDERED: ROSU5TAB40 PO (12:42)
[2024-05-09 14:01] LABS: BASO % 0.4 % (0.0-1.0); EOS # 0.2 10^3/uL (0.0-0.5); EOS % 2.9 % (0.0-3.0); HEMATOCRIT 39.3 % (42.0-52.0); HEMOGLOBIN 12.8 g/dl (13.5-17.5); LYMPH # 1.4 10^3/uL (1.5-5.0); LYMPH % 18.4 % (24.0-44.0); MEAN CORPUSCULAR HEMOGLOBIN 32.1 pg (27.0-33.0); MEAN CORPUSCULAR HGB CONC 32.6 g/dl (32.0-36.5); MEAN CORPUSCULAR VOLUME 98.5 fl (80.0-96.0); MONO # 0.8 10^3/uL (0.0-0.8); MONO % 10.7 % (2.0-8.0); NEUTROPHILS # 5.1 10^3/uL (1.5-8.5); NEUTROPHILS % 67.3 % (36.0-66.0); PLATELET COUNT, AUTOMATED 232 10^3/uL (150-450); RED BLOOD COUNT 3.99 10^6/uL (4.30-6.10); WHITE BLOOD COUNT 7.6 10^3/uL (4.0-10.0)
[2024-05-09 14:20] LABS: INR 1.17; PROTHROMBIN TIME 15.2 SECONDS (12.5-14.5)
[2024-05-09] MEDS: ACETAMINOPHEN 500 MG TAB PO ONE (14:27)
[2024-05-09 14:42] LABS: ALBUMIN 3.3 G/DL (3.2-5.2); ALKALINE PHOSPHATASE 54 U/L (40-129); ALT/SGPT 23 U/L (7.0-40); AST/SGOT 68 U/L (<34); BILIRUBIN,DIRECT 0.1 MG/DL (<0.4); BILIRUBIN,TOTAL 0.4 MG/DL (0.3-1.2); BLOOD UREA NITROGEN 21 MG/DL (9-23); CALCIUM LEVEL 8.6 MG/DL (8.3-10.6); CARBON DIOXIDE LEVEL 25 MMOL/L (20-31); CHLORIDE LEVEL 108 MMOL/L (98-107); CREATININE FOR GFR 0.95 MG/DL (0.70-1.30); GLOMERULAR FILTRATION RATE > 60.0 (>42); GLUCOSE, FASTING 97 MG/DL (74-106); LIPASE 46 U/L (12-53); POTASSIUM SERUM 7.1 MMOL/L (3.5-5.1); SODIUM LEVEL 136 MMOL/L (136-145); TOTAL PROTEIN 8.4 G/DL (5.7-8.2)
[2024-05-09] MEDS ORDERED: ISOVUE-370 76% 100ML VIAL As Ordered ONE (14:47)
[2024-05-09] MEDS: MORPHINE 2 MG/ML 1ML VIAL IV PRN (14:56)
[2024-05-09 15:33] LABS: BLOOD UREA NITROGEN 21 MG/DL (9-23); CALCIUM LEVEL 8.5 MG/DL (8.3-10.6); CARBON DIOXIDE LEVEL 28 MMOL/L (20-31); CHLORIDE LEVEL 106 MMOL/L (98-107); CREATININE FOR GFR 1.02 MG/DL (0.70-1.30); GLOMERULAR FILTRATION RATE > 60.0 (>42); GLUCOSE, FASTING 95 MG/DL (74-106); POTASSIUM SERUM 5.8 MMOL/L (3.5-5.1); SODIUM LEVEL 137 MMOL/L (136-145)
[2024-05-09] MEDS ORDERED: EZET10TA21 PO (19:04)
[2024-05-09] MEDS ORDERED: HOME MED LIST COMPLETE! XX SCH (19:05)
[2024-05-09] MEDS ORDERED: MOM 30ML SUSPENSION UDC PO PRN (20:20)
[2024-05-09] MEDS ORDERED: DOCUSATE SODIUM 100MG CAPSULE PO PRN (20:20)
[2024-05-09] MEDS ORDERED: MIRALAX *UNIT DOSE* 17GM PACKET PO PRN (20:20)
[2024-05-09] MEDS: PANTOPRAZOLE 40MG TAB (PROTONIX) PO SCH (20:58)
[2024-05-09] MEDS: ACETAMINOPHEN 325 MG TAB PO PRN (20:58)
[2024-05-09] MEDS: METOPROLOL TART 25 MG TABLET PO SCH (20:58)
[2024-05-09] MEDS: APIXABAN 5 MG TAB (ELIQUIS) PO SCH (20:58)
[2024-05-10 06:23] LABS: HEMOGLOBIN 11.7 g/dl (13.5-17.5); MEAN CORPUSCULAR HGB CONC 32.5 g/dl (32.0-36.5); MEAN CORPUSCULAR VOLUME 98.4 fl (80.0-96.0); PLATELET COUNT, AUTOMATED 216 10^3/uL (150-450); RED BLOOD COUNT 3.66 10^6/uL (4.30-6.10); WHITE BLOOD COUNT 5.4 10^3/uL (4.0-10.0)
[2024-05-10 06:51] LABS: BLOOD UREA NITROGEN 19 MG/DL (9-23); CALCIUM LEVEL 8.5 MG/DL (8.3-10.6); CARBON DIOXIDE LEVEL 27 MMOL/L (20-31); CHLORIDE LEVEL 108 MMOL/L (98-107); CREATININE FOR GFR 1.03 MG/DL (0.70-1.30); GLOMERULAR FILTRATION RATE > 60.0 (>42); GLUCOSE, FASTING 101 MG/DL (74-106); POTASSIUM SERUM 4.2 MMOL/L (3.5-5.1); SODIUM LEVEL 138 MMOL/L (136-145)
[2024-05-10] MEDS ORDERED: POTASSIUM CITRATE 1080MG (10MEQ) TAB PO SCH (09:00)
[2024-05-10] MEDS: EZETIMIBE 10MG TABLET (ZETIA) PO SCH (09:00)
[2024-05-10] MEDS ORDERED: PILL CUTTER 1 EACH XX ONE (09:48)
[2024-05-10] MEDS ORDERED: NALOXONE INJ 0.4MG/1ML VIAL IV PRN (09:50)
[2024-05-10] MEDS: TAMSULOSIN 0.4 MG CAP PO SCH (09:54)
[2024-05-10] MEDS: ROSUVASTATIN 10 MG TAB (CRESTOR) PO SCH (09:55)
[2024-05-10] MEDS: LORATADINE 10 MG TAB PO SCH (09:55)
[2024-05-10] MEDS: ASPIRIN 81MG ENTERIC TABLET PO SCH (09:55)
[2024-05-10] MEDS: FINASTERIDE 5MG TAB PO SCH (09:55)
[2024-05-10] MEDS: amLODIPine 5 MG TAB PO SCH (09:56)
[2024-05-10] MEDS ORDERED: PILL CUTTER 1 EACH XX PRN (10:05)
[2024-05-10] MEDS: LIDOCAINE 5% (LIDODERM) PATCH TD SCH (10:52)
[2024-05-10 12:10] VITALS: BP 110/57; TEMP 97.9; O2SAT 93
[2024-05-10] MEDS: ACETAMINOPHEN 500 MG TAB PO SCH (12:47)
[2024-05-10] MEDS: oxyCODONE 5MG TAB PO SCH (12:47)
[2024-05-10 19:58] VITALS: BP 121/58; TEMP 98.1; O2SAT 94
[2024-05-11 03:32] VITALS: BP 129/61; TEMP 97.7; O2SAT 96
[2024-05-11 03:42] VITALS: BP 117/74; TEMP 98.2; O2SAT 97
[2024-05-11] MEDS ORDERED: LIDO5TD TD (07:50)
[2024-05-11] MEDS ORDERED: ACET-683 PO (07:50)
[2024-05-11] MEDS ORDERED: OXYC1CAP2 PO (07:54)
[2024-05-11 08:00] VITALS: BP 120/63; TEMP 97.7; O2SAT 98
[2024-05-11 08:16] VITALS: BP 120/63
[2024-05-11 12:00] VITALS: BP 146/68; TEMP 97.7; O2SAT 95
== END 2024-05-11 13:30 | disposition home health service (06) ==
LOC: M ED 12:25 → M ED INP 12:26 → M MS5PR 05-10 12:10
PROVIDERS: ADMIT General Practice; ATTEND General Practice
DX: R42 Dizziness and giddiness (principal); Z91.81 History of falling; M54.50 Low back pain, unspecified; E87.5 Hyperkalemia; D47.2 Monoclonal gammopathy; I25.10 Atherosclerotic heart disease of native coronary artery without angina pectoris; I25.2 Old myocardial infarction; N40.0 Benign prostatic hyperplasia without lower urinary tract symptoms; I48.91 Unspecified atrial fibrillation; I10 Essential (primary) hypertension; E11.9 Type 2 diabetes mellitus without complications; N20.1 Calculus of ureter; Z79.01 Long term (current) use of anticoagulants; K27.9 Peptic ulcer, site unspecified, unspecified as acute or chronic, without hemorrhage or perforation; Z79.82 Long term (current) use of aspirin; Z79.899 Other long term (current) drug therapy; Z88.2 Allergy status to sulfonamides; Z88.1 Allergy status to other antibiotic agents; Z88.8 Allergy status to other drugs, medicaments and biological substances
CPT/HCPCS: 71275; 72110; 72131; 74177; 80048; 80076; 83690; 84132; 84484; 85025; 85027; 85610; 93005; 96374; 96376; 97116; 97161; 97165; 97530; 99285; G0378; Q9967

== ENCOUNTER → 2024-11-12 | Outpatient (CLI) | payer MEDICARE, BC ==
[~2024-11-12] MED LIST changes: +ACET-683 PO; +EZET10TA21 PO; +LIDO5TD TD; +LIFI1DRO4 OU; +OXYC1CAP2 PO; -POTA10808 PO; +POTA10809 PO; +ROSU5TAB49 PO; -XIID5DRO OU
== END ==
LOC: M PLAIMG 13:20
PROVIDERS: ATTEND Urology
DX: N13.5 Crossing vessel and stricture of ureter without hydronephrosis (principal); N20.0 Calculus of kidney; N28.1 Cyst of kidney, acquired

== ENCOUNTER → 2025-01-14 | Outpatient (CLI) | payer MEDICARE, BC ==
[~2025-01-14] MED LIST changes: +LOSA50TA28 PO; +METO1TAB32 PO
== END ==
LOC: M WUC 15:00
PROVIDERS: ATTEND Nurse Practitioner Family
DX: R10.84 Generalized abdominal pain (principal)